=== PATIENT | male | born 1970 | race Caucasian/White ===

== ENCOUNTER → 2017-06-22 | Outpatient (CLI) | payer OTHER ==
[2017-06-22 17:11] LABS: Blood Urea Nitrogen 16 mg/dL (9-20)
--- NOTE | 2017-06-23 09:39 | CT ---
EXAMINATION TYPE: CT angio neck DATE OF EXAM: 06/22/2017 HISTORY: Visual disturbance and memory loss. COMPARISON: NONE CT DLP: 473.8 mGycm. Automated Exposure Control for Dose Reduction was Utilized. TECHNIQUE: CTA scan of the neck is performed with IV Contrast, patient injected with 65 mL of Isovue 370, axial images are obtained, coronal and sagittal reformatted images are reviewed. Three-D recons tructed images are created on an independent workstation and reviewed. FINDINGS: Carotid/Vascular Structures: There is a two-vessel arch. Thoracic aorta, innominate, left and right c ommon carotid, left and right subclavian arteries are patent. Left and right vertebral arteries are p atent and codominant. Internal and external carotid arteries are patent and show no significant steno sis. There is no evident dissection or aneurysm present. Other: Skull base is normal. Lung apices are unremarkable. Bones show no significant abnormality. IMPRESSION: No significant abnormality is seen.
== END ==
LOC: RADCTMAIN 16:26
PROVIDERS: ATTEND Psychiatry & Neurology Neurology
DX: R41.0 Disorientation, unspecified (principal)
CPT/HCPCS: 82565; 84520; 70498; 36415; Q9967

== ENCOUNTER → 2019-10-31 | Outpatient (CLI) | payer OTHER ==
--- NOTE | 2019-10-31 15:58 | US ---
EXAMINATION TYPE: US abdomen limited DATE OF EXAM: 10/31/2019 COMPARISON: NONE CLINICAL HISTORY: R74.8 ABN LEVELS OF OTHER SERUM ENZYMES. RUQ pain EXAM MEASUREMENTS: Liver Length: 18.4 cm Gallbladder Wall: 0.3 cm CBD: 0.5 cm Right Kidney: 13.1 x 5.4 x 6.1 cm Technical limitations due to patient's body habitus and large amount of overlying bowel content Pancreas: Obscured by bowel gas Liver: attenuating Gallbladder: no evidence of stones Evidence for sonographic Tay's sign: no CBD: limited evaluation Right Kidney: no evidence of hydronephrosis IMPRESSION: 1. Mild fatty infiltration liver.
--- NOTE | 2019-10-31 15:59 | US ---
EXAMINATION TYPE: US scrotum with doppler. Grayscale and color Doppler Duplex imaging performed of t gibran scrotum. 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 Patient states pea size lump in between sanjana ticles EXAM MEASUREMENTS: TESTICLES: Right Testicle: 4.2 x 2.0 x 3.3 cm Left Testicle: 4.5 x 2.1 x 3.5 cm EPIDIDYMIS HEAD: Right Epididymis: 1.4 cm Left Epididymis: 0.9 cm Doppler performed to assess for testicular vascularity; good bilateral color flow and waveforms are s een. There is no evidence of testicular torsion. Presence of varicoceles: yes, lateral to bilateral testicles Heterogeneous testes bilaterally . IMPRESSION: 1. No suspicious masses identified.
== END | disposition home or self-care (01) ==
LOC: RADUSWWP 07:35
PROVIDERS: ATTEND Family Medicine
DX: K76.0 Fatty (change of) liver, not elsewhere classified (principal); N50.89 Other specified disorders of the male genital organs; R74.8 Abnormal levels of other serum enzymes
CPT/HCPCS: 76705; 76870; 93975

== ENCOUNTER → 2019-11-04 | Outpatient (CLI) | payer OTHER | END | disposition home or self-care (01) | LOC: LABWHC1 10:46 | PROVIDERS: ATTEND Surgery Plastic and Reconstructive Surgery | DX: Z01.818 Encounter for other preprocedural examination (principal) | CPT/HCPCS: 36415; 93005 ==

== ENCOUNTER 2020-08-25 14:30 | Observation (INO) | payer OTHER ==
[2020-08-25] MEDS ORDERED: SODIUM CHLORIDE 0.9% 1,000 ML IV STA (14:59)
--- NOTE | 2020-08-25 15:03 | ED ---
General Adult HPI - General Chief complaint: Fever Stated complaint: fever,body aches Time Seen by Provider: 08/25/20 14:50 Source: patient, family, RN notes reviewed Mode of arrival: ambulatory Limitations: no limitations - History of Present Illness Initial comments: Patient is a pleasant 49-year-old male presenting to the emergency Department with complaints of abdominal discomfort and fever. Onset of symptoms was a past couple of days. Patient did have temperature of 102.0 this morning and did take Motrin. Abdominal discomfort has been mostly upper abdomen. Patient was seen at a different facility and had CT scans done just a couple days ago. Patient does have known gallbladder disease and previously was playing and having it removed with Dr. Oliver. Patient did have recent antibiotics for cellulitis of his left arm that is near resolved. Patient has had some chronic diarrhea/loose stools for months that is minimally improved. - Related Data Home Medications Medication Instructions Recorded Confirmed ALPRAZolam [Xanax] 0.25 mg PO BID PRN 08/25/20 08/25/20 Albuterol Inhaler [Ventolin Hfa 2 puff INHALATION QID PRN 08/25/20 08/25/20 Inhaler] Cyclobenzaprine [Flexeril] 5 mg PO TID PRN 08/25/20 08/25/20 Dicyclomine [Bentyl] 20 mg PO AC-BID 08/25/20 08/25/20 Fexofenadine HCl [Sol Allergy] 180 mg PO HS 08/25/20 08/25/20 Fluticasone Nasal [place] [Flonase 2 spr EA NOSTRIL DAILY PRN 08/25/20 08/25/20 Nasal [place]] Liraglutide [Victoza 3-Armond] 1.2 mg SQ DAILY 08/25/20 08/25/20 Lisinopril [Prinivil] 10 mg PO DAILY 08/25/20 08/25/20 Montelukast Sodium [Singulair] 10 mg PO DAILY 08/25/20 08/25/20 Omeprazole 40 mg PO DAILY 08/25/20 08/25/20 Sulfamethox-Tmp 800-160Mg [Bactrim 1 tab PO Q12H 08/25/20 08/25/20 DS 800-160 mg] metFORMIN HCL [Glucophage] 1,000 mg PO BID 08/25/20 08/25/20 Allergies Allergy/AdvReac Type Severity Reaction Status Date / Time codeine Allergy Rash/Hives Verified 08/25/20 17:01 diclofenac [From Cataflam] Allergy Unknown Verified 08/25/20 17:01 gemfibrozil [From Lopid] Allergy Rash/Hives Verified 08/25/20 17:01 metaxalone [From Skelaxin] Allergy Rash/Hives Verified 08/25/20 17:01 Review of Systems ROS Statement: Those systems with pertinent positive or pertinent negative responses have been documented in the HPI. ROS Other: All systems not noted in ROS Statement are negative. Constitutional: Reports: fever, chills Eyes: Denies: eye pain ENT: Denies: ear pain Respiratory: Denies: cough, dyspnea Cardiovascular: Denies: chest pain Endocrine: Denies: fatigue Gastrointestinal: Reports: as per HPI, abdominal pain Genitourinary: Denies: dysuria Musculoskeletal: Denies: back pain Skin: Denies: rash Neurological: Denies: weakness Past Medical History Past Medical History: Asthma, COPD, Diabetes Mellitus, GERD/Reflux, Hypertension Additional Past Medical History / Comment(s): cellulitis left elbow History of Any Multi-Drug Resistant Organisms: None Reported Past Surgical History: Orthopedic Surgery Past Psychological History: Anxiety Smoking Status: Former smoker Past Alcohol Use History: Occasional Past Drug Use History: None Reported General Exam Limitations: no limitations General appearance: alert, in no apparent distress Head exam: Present: normocephalic Eye exam: Present: normal appearance Neck exam: Present: normal inspection Respiratory exam: Present: normal lung sounds bilaterally Cardiovascular Exam: Present: regular rate, normal rhythm GI/Abdominal exam: Present: soft, tenderness (Mild to moderate tenderness right upper and lower quadrant), normal bowel sounds. Absent: distended, guarding, rebound, rigid, pulsatile mass Extremities exam: Present: normal inspection. Absent: pedal edema, calf tenderness Neurological exam: Present: alert Psychiatric exam: Present: normal affect, normal mood Skin exam: Present: normal color. Absent: erythema Course Vital Signs 08/25/20 14:32 Temperature 98.4 F Pulse Rate 86 Respiratory 18 Rate Blood Pressure 120/80 O2 Sat by Pulse 97 Oximetry Medical Decision Making - Medical Decision Making Patient reevaluated and still complain of discomfort. Patient and family updated on results and plan. Case was discussed with Dr. Oliver who is previous 16 this patient who will admit. Ultrasound be ordered. - Lab Data Result diagrams: 08/25/20 15:08 08/25/20 15:08 Lab Results 08/25/20 08/25/20 08/25/20 Range/Units 15:08 15:08 15:08 WBC 5.7 (3.8-10.6) k/uL RBC 4.37 (4.30-5.90) m/uL Hgb 14.6 (13.0-17.5) gm/dL Hct 41.1 (39.0-53.0) % MCV 94.0 (80.0-100.0) fL MCH 33.5 (25.0-35.0) pg MCHC 35.6 (31.0-37.0) g/dL RDW 13.0 (11.5-15.5) % Plt Count 204 (150-450) k/uL MPV 8.2 Neutrophils % 63 % Lymphocytes % 25 % Monocytes % 6 % Eosinophils % 1 % Basophils % 1 % Neutrophils # 3.6 (1.3-7.7) k/uL Lymphocytes # 1.4 (1.0-4.8) k/uL Monocytes # 0.4 (0-1.0) k/uL Eosinophils # 0.1 (0-0.7) k/uL Basophils # 0.0 (0-0.2) k/uL Hyperchromasia Slight PT 10.2 (9.0-12.0) sec INR 0.9 (<1.2) APTT 23.6 (22.0-30.0) sec Sodium (137-145) mmol/L Potassium (3.5-5.1) mmol/L Chloride (98-107) mmol/L Carbon Dioxide (22-30) mmol/L Anion Gap mmol/L BUN (9-20) mg/dL Creatinine (0.66-1.25) mg/dL Est GFR (CKD-EPI)AfAm (>60 ml/min/1.73 sqM) Est GFR (CKD-EPI)NonAf (>60 ml/min/1.73 sqM) Glucose (74-99) mg/dL Calcium (8.4-10.2) mg/dL Total Bilirubin (0.2-1.3) mg/dL AST (17-59) U/L ALT (4-49) U/L Alkaline Phosphatase (38-126) U/L Total Protein (6.3-8.2) g/dL Albumin (3.5-5.0) g/dL Amylase (30-110) U/L Lipase (23-300) U/L Urine Color Dark Yellow Urine Appearance Cloudy (Clear) Urine pH 5.5 (5.0-8.0) Ur Specific [place] 1.041 H (1.001-1.035) Urine Protein 2+ H (Negative) Urine Glucose (UA) Trace H (Negative) Urine Ketones Trace H (Negative) Urine Blood Negative (Negative) Urine Nitrite Negative (Negative) Urine Bilirubin Negative (Negative) Urine Urobilinogen <2.0 (<2.0) mg/dL Ur Leukocyte Esterase Negative (Negative) Urine RBC 4 (0-5) /hpf Urine WBC 3 (0-5) /hpf Urine Mucus Many H (None) /hpf 08/25/20 Range/Units 15:08 WBC (3.8-10.6) k/uL RBC (4.30-5.90) m/uL Hgb (13.0-17.5) gm/dL Hct (39.0-53.0) % MCV (80.0-100.0) fL MCH (25.0-35.0) pg MCHC (31.0-37.0) g/dL RDW (11.5-15.5) % Plt Count (150-450) k/uL MPV Neutrophils % % Lymphocytes % % Monocytes % % Eosinophils % % Basophils % % Neutrophils # (1.3-7.7) k/uL Lymphocytes # (1.0-4.8) k/uL Monocytes # (0-1.0) k/uL Eosinophils # (0-0.7) k/uL Basophils # (0-0.2) k/uL Hyperchromasia PT (9.0-12.0) sec INR (<1.2) APTT (22.0-30.0) sec Sodium 135 L (137-145) mmol/L Potassium 4.4 (3.5-5.1) mmol/L Chloride 102 (98-107) mmol/L Carbon Dioxide 20 L (22-30) mmol/L Anion Gap 13 mmol/L BUN 19 (9-20) mg/dL Creatinine 1.08 (0.66-1.25) mg/dL Est GFR (CKD-EPI)AfAm >90 (>60 ml/min/1.73 sqM) Est GFR (CKD-EPI)NonAf 80 (>60 ml/min/1.73 sqM) Glucose 164 H (74-99) mg/dL Calcium 9.5 (8.4-10.2) mg/dL Total Bilirubin 1.4 H (0.2-1.3) mg/dL AST 51 (17-59) U/L ALT 85 H (4-49) U/L Alkaline Phosphatase 68 (38-126) U/L Total Protein 7.5 (6.3-8.2) g/dL Albumin 4.7 (3.5-5.0) g/dL Amylase 83 (30-110) U/L Lipase 202 (23-300) U/L Urine Color Urine Appearance (Clear) Urine pH (5.0-8.0) Ur Specific [place] (1.001-1.035) Urine Protein (Negative) Urine Glucose (UA) (Negative) Urine Ketones (Negative) Urine Blood (Negative) Urine Nitrite (Negative) Urine Bilirubin (Negative) Urine Urobilinogen (<2.0) mg/dL Ur Leukocyte Esterase (Negative) Urine RBC (0-5) /hpf Urine WBC (0-5) /hpf Urine Mucus (None) /hpf - Radiology Data Radiology results: report reviewed (Abdominal CT does not reveal acute process, normal appendix. There are gallstones.) Disposition Clinical Impression: Abdominal pain Disposition: ADMITTED IP TO THIS HOSP Is patient prescribed a controlled substance at d/c from ED?: No Referrals: Seven Moon MD [Primary Care Provider] - 1-2 days Decision Time: 17:36
[2020-08-25 15:25] LABS: Basophils % (A) 1 %; Eosinophils # (A) 0.1 k/uL (0-0.7); Eosinophils % (A) 1 %; HCT 41.1 % (39.0-53.0); HGB 14.6 gm/dL (13.0-17.5); Hyperchromasia Slight; Lymphocytes # (A) 1.4 k/uL (1.0-4.8); Lymphocytes % (A) 25 %; MCH 33.5 pg (25.0-35.0); MCHC 35.6 g/dL (31.0-37.0); Mean Platelet Volume 8.2; Monocytes # (A) 0.4 k/uL (0-1.0); Monocytes % (A) 6 %; Neutrophils # (A) 3.6 k/uL (1.3-7.7); Neutrophils % (A) 63 %; Platelet Count 204 k/uL (150-450); RBC 4.37 m/uL (4.30-5.90); WBC 5.7 k/uL (3.8-10.6)
[2020-08-25 15:37] LABS: ALT 85 U/L (4-49); AST 51 U/L (17-59); African American GFR (CKD) >90 (>60 ml/min/1.73 sqM); Albumin 4.7 g/dL (3.5-5.0); Alkaline Phosphatase 68 U/L (38-126); Amylase 83 U/L (30-110); Anion Gap 13 mmol/L; Blood Urea Nitrogen 19 mg/dL (9-20); Calcium 9.5 mg/dL (8.4-10.2); Carbon Dioxide 20 mmol/L (22-30); Chloride 102 mmol/L (98-107); Glucose 164 mg/dL (74-99); INR 0.9 (<1.2); Lipase 202 U/L (23-300); Non-African American GFR(CKD) 80 (>60 ml/min/1.73 sqM); Partial Thromboplastin Time 23.6 sec (22.0-30.0); Potassium 4.4 mmol/L (3.5-5.1); Prothrombin Time 10.2 sec (9.0-12.0); Sodium 135 mmol/L (137-145); Total Bilirubin 1.4 mg/dL (0.2-1.3); Total Protein 7.5 g/dL (6.3-8.2)
[2020-08-25 15:59] LABS: Appearance,Urine Cloudy (Clear); Bilirubin,Urine Negative (Negative); Blood,Urine Negative (Negative); Color,Urine Dark Yellow; Glucose,Urine (UA) Trace (Negative); Ketones,Urine Trace (Negative); Leukocyte Esterase,Urine Negative (Negative); Mucus,Urine Many /hpf; Nitrite,Urine Negative (Negative); PH, Urine 5.5 (5.0-8.0); Protein,Urine 2+ (Negative); RBC,Urine 4 /hpf (0-5); Specific Gravity,Urine 1.041 (1.001-1.035); Urobilinogen,Urine <2.0 mg/dL (<2.0); WBC,Urine 3 /hpf (0-5)
--- NOTE | 2020-08-25 16:31 | CT ---
EXAMINATION TYPE: CT abdomen pelvis w con DATE OF EXAM: 08/25/2020 COMPARISON: None HISTORY: Right sided abdominal pain with fever CT DLP: 2184 mGycm CONTRAST: CT scan of the abdomen and pelvis is performed without Oral Contrast and with IV Contrast, patient in jected with 100 mL of Isovue 300. FINDINGS: LUNG BASES-: No visible nodule. No infiltrate. LIVER/GB: Small gallstones noted. Hepatic steatosis identified. No space occupying hepatic lesion. Biliary tree is of normal caliber. PANCREAS: No inflammation. No distinct mass. SPLEEN: Splenomegaly measuring 16.2 cm craniocaudal dimension. No lesion seen. ADRENALS: No nodule. No thickening. KIDNEYS/BLADDER: No hydronephrosis. No nephrolithiasis. No distinct renal mass. Urinary bladder g rossly unremarkable. BOWEL: Normal appendix. Normal bowel caliber. No inflammation. GENITAL ORGANS: No gross abnormality. LYMPH NODES: No greater than 1cm abdominal or pelvic lymph nodes are appreciated. AORTA: No significant abnormality. OSSEOUS STRUCTURES: No significant abnormality is seen. OTHER: No significant additional abnormality is seen. IMPRESSION: 1. Splenomegaly of uncertain etiology. 2. Fatty liver. 3. No inflammatory process or abscess seen.
[2020-08-25] MEDS ORDERED: NALOXONE 0.4 MG/ML 1 ML VIAL IV PRN (17:36)
[2020-08-25] MEDS ORDERED: HYDROmorphone 1 MG/ML 1 ML SYRINGE IVP PRN (17:36)
[2020-08-25] MEDS ORDERED: HYDROmorphone 0.5 MG/0.5 ML SYRINGE IVP PRN (17:36)
[2020-08-25] MEDS: SODIUM CHLORIDE 0.9% 1,000 ML IV SCH (18:11)
[2020-08-25] MEDS: AMPICILLIN-SULBACTAM 1.5 GM in SODIUM CHLORIDE 0.9% 50 ML IVPB SCH ×2 (18:22→23:35)
[2020-08-25] MEDS ORDERED: FLUTICASONE 50MCG/SPRAY NASAL 16GM EA NOSTRIL PRN (19:32)
[2020-08-25] MEDS ORDERED: ALBUTEROL NEBULIZED 2.5 MG/3 ML INHALATION PRN (19:32)
[2020-08-25] MEDS ORDERED: SODIUM CHLORIDE 0.9% 1,000 ML IV ONE (19:36)
[2020-08-25] MEDS: lisinopriL 10 MG TAB PO SCH (19:50)
[2020-08-25] MEDS: MONTELUKAST 10 MG TAB PO SCH (19:50)
[2020-08-25] MEDS: metFORMIN 500 MG TAB PO SCH (19:52)
[2020-08-25] MEDS: LORATADINE 10 MG TAB PO SCH (19:52)
--- NOTE | 2020-08-25 20:17 | US ---
EXAMINATION TYPE: US gallbladder DATE OF EXAM: 08/25/2020 COMPARISON: CT, US CLINICAL HISTORY: ruq pain. RUQ pain. Hx gallstones, fatty liver. EXAM MEASUREMENTS: Liver Length: 20.0 cm Gallbladder Wall: 0.31 cm CBD: Not seen with certainty, measured at 0.55 cm Right Kidney: 13.1 x 6.7 x 6.7 cm Limited due to large patient body habitus and overlying bowel gas. Pancreas: Obscured by overlying bowel gas. Liver: Appears enlarged. Increased echogenicity and attenuation. Gallbladder: Limited. Possible internal echoes. Wall measures upper limits of normal. Evidence for sonographic Tay's sign: No CBD: Not seen with certainty, measured at 0.55 cm. Right Kidney: Appears enlarged. Hyperechoic focus seen: 0.5 x 0.5 x 0.4 cm. IMPRESSION: Gallbladder not optimally seen. No definite gallstones. No dilated ducts. No evidence of a discrete l iver mass. There is fatty infiltration of the liver. Exam limited by patient's size.
[2020-08-25] MEDS: CYCLOBENZAPRINE 5 MG TAB PO PRN (23:43)
[2020-08-26] MEDS: INSULIN ASPART (NovoLOG) 100 UNIT/ML VIAL SQ SCH ×4 (03:12→18:02)
[2020-08-26] MEDS: AMPICILLIN-SULBACTAM 1.5 GM in SODIUM CHLORIDE 0.9% 50 ML IVPB SCH ×4 (05:22→23:02)
[2020-08-26] MEDS: SODIUM CHLORIDE 0.9% 1,000 ML IV SCH ×3 (05:23→16:57)
[2020-08-26 06:25] LABS: ALT 77 U/L (4-49); AST 42 U/L (17-59); African American GFR (CKD) >90 (>60 ml/min/1.73 sqM); Albumin/Globulin Ratio 1.6; Alkaline Phosphatase 58 U/L (38-126); Anion Gap 9 mmol/L; Blood Urea Nitrogen 16 mg/dL (9-20); Calcium 8.7 mg/dL (8.4-10.2); Carbon Dioxide 23 mmol/L (22-30); Chloride 103 mmol/L (98-107); Globulin 2.5 g/dL; Glucose 116 mg/dL (74-99); Non-African American GFR(CKD) 89 (>60 ml/min/1.73 sqM); Potassium 4.2 mmol/L (3.5-5.1); Sodium 135 mmol/L (137-145); Total Bilirubin 1.1 mg/dL (0.2-1.3); Total Protein 6.5 g/dL (6.3-8.2)
[2020-08-26 08:02] LABS: Glucose,Whole Blood 138 mg/dL (75-99)
[2020-08-26] MEDS: PANTOPRAZOLE 40 MG/10 ML VIAL IV SCH (08:13)
[2020-08-26] MEDS: ALPRAZolam 0.25 MG TAB PO PRN (08:13)
[2020-08-26] MEDS: ACETAMINOPHEN TAB 325 MG TAB PO PRN ×2 (08:13→23:01)
[2020-08-26] MEDS: metFORMIN 500 MG TAB PO SCH (08:13)
[2020-08-26] MEDS: MONTELUKAST 10 MG TAB PO SCH (08:13)
[2020-08-26] MEDS: lisinopriL 10 MG TAB PO SCH (08:14)
[2020-08-26] MEDS: DICYCLOMINE 20 MG TAB PO SCH ×2 (08:14→18:02)
[2020-08-26] MEDS: NON FORMULARY DRUG (Liraglutide [Victoza 3-Pak] 0.6 MG/0.1 ML Pen.Injctr) SQ SCH (08:21)
[2020-08-26 09:25] LABS: Basophils # (A) 0.03 X 10*3/uL (0.00-0.10); Basophils % (A) 0.6 %; Eosinophils # (A) 0.05 X 10*3/uL (0.04-0.35); Eosinophils % (A) 1.1 %; HGB 12.7 g/dL (13.0-17.0); Lymphocytes # (A) 1.82 X 10*3/uL (0.90-5.00); Lymphocytes % (A) 39.2 %; MCH 32.5 pg (27.0-32.0); MCHC 33.4 g/dL (32.0-37.0); MCV 97.2 fL (80.0-97.0); Mean Platelet Volume 10.8 fL (9.5-12.2); Monocytes # (A) 0.48 X 10*3/uL (0.20-1.00); Monocytes % (A) 10.3 %; Neutrophils # (A) 2.23 X 10*3/uL (1.80-7.70); Neutrophils % (A) 48.2 %; Platelet Count 195 X 10*3/uL (140-440); RBC 3.91 X 10*6/uL (4.40-5.60); RDW 13.2 % (11.5-14.5); WBC 4.64 X 10*3/uL (4.50-10.00)
[2020-08-26] MEDS ORDERED: ONDANSETRON 4 MG/2 ML VIAL IVP PRN (11:02)
--- NOTE | 2020-08-26 11:04 | P.GSHP ---
<Jena Oates - Last Filed: 08/26/20 13:45> History of Present Illness H&P Date: 08/26/20 CHIEF COMPLAINT: Abdominal pain HISTORY OF PRESENT ILLNESS: This is a 49-year-old male with a known history of gallbladder disease, COPD, diabetes and hypertension. He had previously been on antibiotics for left elbow cellulitis that has healed. He presents to the emergency room with complaints of abdominal pain and fever. Patient reports that he is having abdominal pain off and on for a while. He is also been dealing with diarrhea since . He had coded during time. And since then has been having about 3 loose stools daily. He reports that the stools are sometimes foamy and he initially started out black. He occasionally has some blood but felt that it was related to his hemorrhoids. He has not had any bright red blood for about 2 months. Patient became concerned because he was having fevers at home as high as 102 over the last couple a days and that is what brought him into the emergency room. He has diffuse pain but mostly his pain is across the upper abdomen. Patient reports that he was about a year ago was supposed to have his gallbladder removed by Dr. Ramos but due to Covid he never did have the surgery done. Patient denies any nausea or vomiting. He has had EGD and colonoscopy about 3 years ago and reports that those were normal. He had computed tomography scan abdomen and pelvis with IV contrast showing splenomegaly of uncertain etiology. Fatty liver. No inflammatory process or abscess seen. Abdominal ultrasound shows gallbladder not optimally seen. No definite gallstones. No dilated ducts. No evidence of discrete liver mass. There is fatty infiltration of the liver. Exam limited by patient's size. Patient does admit to having nausea. He denies any vomiting. He reports that his symptoms have improved after taking until which he started about 5 days ago and was prescribed by his PCP. PAST MEDICAL HISTORY: See list. PAST SURGICAL HISTORY: See list. MEDICATIONS: See list. ALLERGIES: See list. SOCIAL HISTORY: No illicit drug use. REVIEW OF SYSTEMS: CONSTITUTIONAL: Denies fever or chills. HEENT: Denies blurred vision, vision changes, or eye pain. Denies hemoptysis ENDOCRINE: Denies heat or cold intolerance. CARDIOVASCULAR: Denies chest pain or pressure. RESPIRATORY: No shortness of breath. GASTROINTESTINAL: Please refer to HPI NEURO: Denies history of seizures. PSYCH: No depression or suicidal ideation HEMATOLOGIC: Denies bleeding disorders. LYMPHATIC: The patient denies any lumps and bumps around the neck. GENITOURINARY: Denies any blood in urine or increased urinary frequency. MUSCULOSKELETAL: Denies myalgias. Denies joint swelling. Denies decreased range of motion beyond patients baseline. SKIN: Denies pruitis. Denies rash. PHYSICAL EXAM: VITAL SIGNS: Reviewed GENERAL: Well-developed in no acute distress. HEENT: No sclera icterus. Extraocular movements grossly intact. Moist buccal mucosa. Head is atraumatic, normocephalic. Hears conversational speech. No nasal drainage. NECK: Supple without lymphadenopathy. CHEST: Non-labored respirations and equal bilateral excursions. CARDIOVASCULAR: Palpable 2+ radial pulses. ABDOMEN: Soft. Nondistended. Diffuse tenderness. With more tenderness noted on the right side of the abdomen and across the upper abdomen MUSCULOSKELETAL: No clubbing or cyanosis. NEUROLOGIC: No focal or lateralizing signs. Cranial nerves II through XII grossly intact. PSYCH: Appropriate affect. Alert and oriented to person, place and time. SKIN: Well perfused. Good skin turgor. LABORATORY DATA: WBC is 4.64 hemoglobin 12.7 platelets 195 INR 0.9 sodium 135 potassium 4.2 creatinine 0.99 glucose 138 Total bilirubin 1.4 down to 1.1 AST 42 ALT 85 down to 77 and alk phos 58 lipase 202 Urinalysis negative for infection IMAGING: CAT scan and ultrasound as stated above ASSESSMENT: 1. Right-sided upper abdominal pain with nausea, fever and diarrhea 2. Right lower quadrant abdominal pain. CT scan reevaluated by Dr. Ramos with evidence of a large fat-containing right inguinal hernia. Appendix unremarkable. 2. History of gallbladder disease 3. History of recent antibiotic use for left elbow cellulitis 4. History of COPD 5. History of diabetes 6. History of hypertension PLAN: -Patient scheduled for robotic cholecystectomy tomorrow, 08/27/[address] Ramos -Continue IV antibiotics -Agree with checking stool for C. diff -Continue IV fluids -Consult medicine service for medical management -Cardiology consulted for cardiac risk assessment -Patient started on low-fat diet -Nothing by mouth after midnight Physician Customs Investigator note has been reviewed by physician. Signing provider agrees with the documented findings, assessment, and plan of care. Past Medical History Past Medical History: Asthma, COPD, Diabetes Mellitus, GERD/Reflux, Hypertension, Sleep Apnea/CPAP/BIPAP Additional Past Medical History / Comment(s): cellulitis left elbow History of Any Multi-Drug Resistant Organisms: None Reported Past Surgical History: Orthopedic Surgery Past Psychological History: Anxiety Smoking Status: Former smoker Past Alcohol Use History: Occasional Past Drug Use History: None Reported Medications and Allergies Home Medications Medication Instructions Recorded Confirmed Type RX: ALPRAZolam [Xanax] 0.25 mg PO BID PRN 08/25/20 08/25/20 History RX: Albuterol Inhaler [Ventolin 2 puff INHALATION QID PRN 08/25/20 08/25/20 History Hfa Inhaler] RX: Cyclobenzaprine [Flexeril] 5 mg PO TID PRN 08/25/20 08/25/20 History RX: Fexofenadine HCl [Sol 180 mg PO HS 08/25/20 08/25/20 History Allergy] RX: Fluticasone Nasal [place] 2 spr EA NOSTRIL DAILY PRN 08/25/20 08/25/20 History [Flonase Nasal [place]] RX: Liraglutide [Victoza 3-Armond] 1.2 mg SQ DAILY 08/25/20 08/25/20 History RX: Lisinopril [Prinivil] 10 mg PO DAILY 08/25/20 08/25/20 History RX: Montelukast Sodium [Singulair] 10 mg PO DAILY 08/25/20 08/25/20 History RX: Omeprazole 40 mg PO DAILY 08/25/20 08/25/20 History RX: Sulfamethox-Tmp 800-160Mg 1 tab PO Q12H 08/25/20 08/25/20 History [Bactrim DS 800-160 mg] RX: metFORMIN HCL [Glucophage] 1,000 mg PO BID 08/25/20 08/25/20 History Acetaminophen Tab [Tylenol Tab] 1,000 mg PO Q6HR PRN #30 tablet 08/27/20 Rx RX: Ibuprofen [Motrin] 600 mg PO Q8HR PRN #30 tab 08/27/20 Rx RX: Simethicone [Gas-X] 125 mg PO AC-TID PRN #20 capsule 08/27/20 Rx Allergies Allergy/AdvReac Type Severity Reaction Status Date / Time codeine Allergy Rash/Hives Verified 08/25/20 17:01 diclofenac [From Cataflam] Allergy Unknown Verified 08/25/20 17:01 gemfibrozil [From Lopid] Allergy Rash/Hives Verified 08/25/20 17:01 metaxalone [From Skelaxin] Allergy Rash/Hives Verified 08/25/20 17:01 Surgical - Exam Vital Signs Temp Pulse Resp BP Pulse Ox 98.4 F 86 18 120/80 97 08/25/20 14:32 08/25/20 14:32 08/25/20 14:32 08/25/20 14:32 08/25/20 14:32 Results - Labs 08/26/20 05:26 08/26/20 05:26 Abnormal Lab Results - Last 24 Hours (Table) 08/25/20 08/25/20 08/26/20 Range/Units 15:08 15:08 05:26 RBC 3.91 L (4.40-5.60) X 10*6/uL Hgb 12.7 L (13.0-17.0) g/dL Hct 38.0 L (39.6-50.0) % MCV 97.2 H (80.0-97.0) fL MCH 32.5 H (27.0-32.0) pg Sodium 135 L (137-145) mmol/L Carbon Dioxide 20 L (22-30) mmol/L Glucose 164 H (74-99) mg/dL POC Glucose (mg/dL) (75-99) mg/dL Total Bilirubin 1.4 H (0.2-1.3) mg/dL ALT 85 H (4-49) U/L Ur Specific [place] 1.041 H (1.001-1.035) Urine Protein 2+ H (Negative) Urine Glucose (UA) Trace H (Negative) Urine Ketones Trace H (Negative) Urine Mucus Many H (None) /hpf 08/26/20 08/26/20 Range/Units 05:26 07:59 RBC (4.40-5.60) X 10*6/uL Hgb (13.0-17.0) g/dL Hct (39.6-50.0) % MCV (80.0-97.0) fL MCH (27.0-32.0) pg Sodium 135 L (137-145) mmol/L Carbon Dioxide (22-30) mmol/L Glucose 116 H (74-99) mg/dL POC Glucose (mg/dL) 138 H (75-99) mg/dL Total Bilirubin (0.2-1.3) mg/dL ALT 77 H (4-49) U/L Ur Specific [place] (1.001-1.035) Urine Protein (Negative) Urine Glucose (UA) (Negative) Urine Ketones (Negative) Urine Mucus (None) /hpf Diabetes panel 08/25/20 08/26/20 Range/Units 15:08 05:26 Sodium 135 L 135 L (137-145) mmol/L Potassium 4.4 4.2 (3.5-5.1) mmol/L Chloride 102 103 (98-107) mmol/L Carbon Dioxide 20 L 23 (22-30) mmol/L BUN 19 16 (9-20) mg/dL Creatinine 1.08 0.99 (0.66-1.25) mg/dL Glucose 164 H 116 H (74-99) mg/dL Calcium 9.5 8.7 (8.4-10.2) mg/dL AST 51 42 (17-59) U/L ALT 85 H 77 H (4-49) U/L Alkaline Phosphatase 68 58 (38-126) U/L Total Protein 7.5 6.5 (6.3-8.2) g/dL Albumin 4.7 4.0 (3.5-5.0) g/dL Calcium panel 08/25/20 08/26/20 Range/Units 15:08 05:26 Calcium 9.5 8.7 (8.4-10.2) mg/dL Albumin 4.7 4.0 (3.5-5.0) g/dL Pituitary panel 08/25/20 08/26/20 Range/Units 15:08 05:26 Sodium 135 L 135 L (137-145) mmol/L Potassium 4.4 4.2 (3.5-5.1) mmol/L Chloride 102 103 (98-107) mmol/L Carbon Dioxide 20 L 23 (22-30) mmol/L BUN 19 16 (9-20) mg/dL Creatinine 1.08 0.99 (0.66-1.25) mg/dL Glucose 164 H 116 H (74-99) mg/dL Calcium 9.5 8.7 (8.4-10.2) mg/dL Adrenal panel 08/25/20 08/26/20 Range/Units 15:08 05:26 Sodium 135 L 135 L (137-145) mmol/L Potassium 4.4 4.2 (3.5-5.1) mmol/L Chloride 102 103 (98-107) mmol/L Carbon Dioxide 20 L 23 (22-30) mmol/L BUN 19 16 (9-20) mg/dL Creatinine 1.08 0.99 (0.66-1.25) mg/dL Glucose 164 H 116 H (74-99) mg/dL Calcium 9.5 8.7 (8.4-10.2) mg/dL Total Bilirubin 1.4 H 1.1 (0.2-1.3) mg/dL AST 51 42 (17-59) U/L ALT 85 H 77 H (4-49) U/L Alkaline Phosphatase 68 58 (38-126) U/L Total Protein 7.5 6.5 (6.3-8.2) g/dL Albumin 4.7 4.0 (3.5-5.0) g/dL <Stephanie Ramos - Last Filed: 08/27/20 19:12> History of Present Illness Patient seen and evaluated. Patient reports pre-existing hypertensive heart disease. Cardiology risk assessment recommended including with echocardiogram ordered. Patient also complains of epigastric and right lower quadrant abdominal pain. Additional diagnostic studies to be reviewed. Otherwise, we'll proceed with cholecystectomy pending cardiac risk assessment, and reevaluation of studies. Surgical - Exam Vital Signs Temp Pulse Resp BP Pulse Ox 98.4 F 86 18 120/80 97 08/25/20 14:32 08/25/20 14:32 08/25/20 14:32 08/25/20 14:32 08/25/20 14:32 Results - Labs 08/26/20 05:26 08/27/20 06:20 Abnormal Lab Results - Last 24 Hours (Table) 08/26/20 08/26/20 08/26/20 Range/Units 05:26 05:26 20:46 Chloride (98-107) mmol/L Glucose (74-99) mg/dL POC Glucose (mg/dL) 163 H (75-99) mg/dL Iron 40 L (65-175) ug/dL % Saturation 14.65 L (15.00-50.00) Ferritin 846.6 H (22.0-322.0) ng/mL ALT (4-49) U/L Total Protein (6.3-8.2) g/dL 08/27/20 08/27/20 08/27/20 Range/Units 06:20 07:29 11:15 Chloride 108 H (98-107) mmol/L Glucose 133 H (74-99) mg/dL POC Glucose (mg/dL) 139 H 134 H (75-99) mg/dL Iron (65-175) ug/dL % Saturation (15.00-50.00) Ferritin (22.0-322.0) ng/mL ALT 75 H (4-49) U/L Total Protein 6.1 L (6.3-8.2) g/dL 08/27/20 Range/Units 16:02 Chloride (98-107) mmol/L Glucose (74-99) mg/dL POC Glucose (mg/dL) 110 H (75-99) mg/dL Iron (65-175) ug/dL % Saturation (15.00-50.00) Ferritin (22.0-322.0) ng/mL ALT (4-49) U/L Total Protein (6.3-8.2) g/dL Microbiology - Last 24 Hours (Table) 08/26/20 05:26 Blood Culture - Preliminary Blood No Growth after 24 hours Diabetes panel 08/27/20 Range/Units 06:20 Sodium 141 (137-145) mmol/L Potassium 4.5 (3.5-5.1) mmol/L Chloride 108 H (98-107) mmol/L Carbon Dioxide 28 (22-30) mmol/L BUN 15 (9-20) mg/dL Creatinine 0.97 (0.66-1.25) mg/dL Glucose 133 H (74-99) mg/dL Calcium 8.9 (8.4-10.2) mg/dL AST 39 (17-59) U/L ALT 75 H (4-49) U/L Alkaline Phosphatase 53 (38-126) U/L Total Protein 6.1 L (6.3-8.2) g/dL Albumin 3.7 (3.5-5.0) g/dL Calcium panel 08/27/20 Range/Units 06:20 Calcium 8.9 (8.4-10.2) mg/dL Albumin 3.7 (3.5-5.0) g/dL Pituitary panel 08/27/20 Range/Units 06:20 Sodium 141 (137-145) mmol/L Potassium 4.5 (3.5-5.1) mmol/L Chloride 108 H (98-107) mmol/L Carbon Dioxide 28 (22-30) mmol/L BUN 15 (9-20) mg/dL Creatinine 0.97 (0.66-1.25) mg/dL Glucose 133 H (74-99) mg/dL Calcium 8.9 (8.4-10.2) mg/dL Adrenal panel 08/27/20 Range/Units 06:20 Sodium 141 (137-145) mmol/L Potassium 4.5 (3.5-5.1) mmol/L Chloride 108 H (98-107) mmol/L Carbon Dioxide 28 (22-30) mmol/L BUN 15 (9-20) mg/dL Creatinine 0.97 (0.66-1.25) mg/dL Glucose 133 H (74-99) mg/dL Calcium 8.9 (8.4-10.2) mg/dL Total Bilirubin 0.7 (0.2-1.3) mg/dL AST 39 (17-59) U/L ALT 75 H (4-49) U/L Alkaline Phosphatase 53 (38-126) U/L Total Protein 6.1 L (6.3-8.2) g/dL Albumin 3.7 (3.5-5.0) g/dL
--- NOTE | 2020-08-26 11:26 | P.PN ---
Progress Note - Text Progress Note Date: 08/26/20 Patient seen and evaluated. He is also complaining of right lower quadrant abdominal pain. Patient has pre-existing history of multiple hernias including inguinal hernia and umbilical hernia. Patient reports abdominal pain after eating at outside restaurant. Computed tomography scan reevaluated. Appendix unremarkable. Large fat-containing right inguinal hernia found. We'll proceed with robotic cholecystectomy. Low-fat diet at this time. Immediate echo for cardiac risk assessment advised.
[2020-08-26 12:18] LABS: Glucose,Whole Blood 111 mg/dL (75-99)
--- NOTE | 2020-08-26 13:26 | P.CONS ---
History of Present Illness - Reason for Consult Consult date: 08/26/20 - Chief Complaint Abdominal pain and fever - History of Present Illness History of Presenting Illness: Patient is a 49-year-old male with a past medical history of gallbladder disease, hypertension, type II [id number] diabetes mellitus, and [place]. He presented to the emergency department with a chief complaint of abdominal pain and fever. He reports that he has been under treatment of Dr. Barkley outpatient for treatment of his gallbladder disease and they were planning to do a cholecystectomy when he had his hernia repair. Patient reports over the past couple days he's had an increase in his abdominal pain and has been running a fever as high as 102F. Patient reports in addition to this has had a couple episodes of nausea but denies having any episodes of vomiting. He recently underwent treatment with antibiotics for cellulitis of his left elbow in which he reports resolution of cellulitis and completion of entire course of antibiotics.. Lastly, he reports having had chronic loose stool since 1966 in which he reports turned to diarrhea around after having Covid 19 virus infection. Patient is admitted under Gen. surgery team and we have been consulted for continued medical management. Patient denies having any headache, lightheadedness, dizziness, chest pain, palpitations, shortness of breath, dysp marlena with exertion, or experiencing any noted blood in stool or dark-colored stools. Review of systems: Pertinent positives and negatives as discussed in HPI, a complete review of systems was performed and all other systems are negative. Physical exam: Vital signs reviewed and stable. General: Nontoxic, no distress and appears stated age. Derm: Skin warm and dry, normal coloration for ethnicity. Head: Atraumatic, normocephalic and symmetric. Eyes: EOMs intact, no lid lag, and anicteric sclera Mouth: no lip lesions, mucus membranes moist Cardiovascular: regular rate and rhythm with normal S1S2, no murmur, positive posterior tibial pulses bilaterally, and cap refill < 2 seconds. Lungs: Respirations even, regular, and unlabored on room air. Lungs CTA bilaterally, no rhonchi, no rales, no wheezing, and no accessory muscle usage. Abdominal: soft, tenderness to palpation in right upper quadrant, epigastric region, and right lower quadrant. No guarding, no appreciable organomegaly Ext: ROM intact. No gross muscle atrophy, no edema, no contractures Neuro: Speech clear, face symmetrical and CN II-XII grossly intact with no noted focal neuro deficits Psych: Alert and oriented to person, place, time, and situation. Appropriate and pleasant affect. Assessment and Plan of Care: Abdominal pain with history of gallbladder disease along with abdominal hernias -Gallbladder ultrasound reportedly stating gallbladder not optimally seen with no definite gallstones or dilated ducts and no evidence of discrete liver mass. Showing only fatty infiltration of the liver. -CT abdomen and pelvis showing splenomegaly and fatty liver -Patient admitted under Gen. surgery team with plans for robotic cholecystectomy. -Morning labs: CMP and CBC to be monitored -Symptomatic care and pain management -Protonix 40 mg IVP daily -IV antibiotics Unasyn Hypertension -Monitor vital signs and continue daily medication regimen with lisinopril. Type II [id number] diabetes mellitus -Hold metformin in place patient on glycemic protocol with NovoLog sliding scale. COPD -Encourage use of incentive spirometry 10-15 times hourly while awake -Provide oxygen supplementation as needed to maintain SpO2 equal to or greater than 90%. -When necessary Ventolin treatments as needed for shortness of breath. -Singulair 10 mg daily. Thank you for allowing us to participate in the care of this pleasant patient. Do not hesitate to contact us with questions. Someone can be reached from the [facility] hospitalist group all hours of the day at [phone] or via [employer]. Past Medical History Past Medical History: Asthma, COPD, Diabetes Mellitus, GERD/Reflux, Hypertension, Sleep Apnea/CPAP/BIPAP Additional Past Medical History / Comment(s): cellulitis left elbow History of Any Multi-Drug Resistant Organisms: None Reported Past Surgical History: Orthopedic Surgery Past Psychological History: Anxiety Smoking Status: Former smoker Past Alcohol Use History: Occasional Past Drug Use History: None Reported Medications and Allergies Home Medications Medication Instructions Recorded Confirmed Type ALPRAZolam [Xanax] 0.25 mg PO BID PRN 08/25/20 08/25/20 History Albuterol Inhaler [Ventolin Hfa 2 puff INHALATION QID PRN 08/25/20 08/25/20 History Inhaler] Cyclobenzaprine [Flexeril] 5 mg PO TID PRN 08/25/20 08/25/20 History Dicyclomine [Bentyl] 20 mg PO AC-BID 08/25/20 08/25/20 History Fexofenadine HCl [Sol Allergy] 180 mg PO HS 08/25/20 08/25/20 History Fluticasone Nasal [place] [Flonase 2 spr EA NOSTRIL DAILY PRN 08/25/20 08/25/20 History Nasal [place]] Liraglutide [Victoza 3-Armond] 1.2 mg SQ DAILY 08/25/20 08/25/20 History Lisinopril [Prinivil] 10 mg PO DAILY 08/25/20 08/25/20 History Montelukast Sodium [Singulair] 10 mg PO DAILY 08/25/20 08/25/20 History Omeprazole 40 mg PO DAILY 08/25/20 08/25/20 History Sulfamethox-Tmp 800-160Mg [Bactrim 1 tab PO Q12H 08/25/20 08/25/20 History DS 800-160 mg] metFORMIN HCL [Glucophage] 1,000 mg PO BID 08/25/20 08/25/20 History Allergies Allergy/AdvReac Type Severity Reaction Status Date / Time codeine Allergy Rash/Hives Verified 08/25/20 17:01 diclofenac [From Cataflam] Allergy Unknown Verified 08/25/20 17:01 gemfibrozil [From Lopid] Allergy Rash/Hives Verified 08/25/20 17:01 metaxalone [From Skelaxin] Allergy Rash/Hives Verified 08/25/20 17:01 Physical Exam Vitals: Vital Signs Temp Pulse Pulse Resp BP BP Pulse Ox 08/26/20 08:45 67 08/26/20 08:33 68 08/26/20 07:00 99.8 F H 73 18 126/78 96 08/26/20 01:25 99.2 F 83 20 121/73 96 08/25/20 19:37 98.8 F 80 18 151/85 100 08/25/20 18:14 74 20 121/84 99 08/25/20 14:32 98.4 F 86 18 120/80 97 Intake and Output 08/25/20 08/26/20 08/26/20 22:59 06:59 14:59 Intake Total 2300 1100 Output Total 1 Balance 2299 1100 Intake: Intake, IV Titration 2300 1100 Amount Ampicillin-Sulbactam 1.5 100 100 gm In Sodium Chloride 0.9 % 50 ml @ 100 mls/hr IVPB Q6HR P[facility]RO Rx#:[id number] Sodium Chloride 0.9% 1, 200 1000 000 ml @ 130 mls/hr IV . Q7H42M PEDRO Rx#:[id number] Sodium Chloride 0.9% 1, 1000 000 ml @ 999 mls/hr IV . Q1H1M ONE Rx#:[id number] Sodium Chloride 0.9% 1, 1000 000 ml @ 999 mls/hr IV . Q1H1M STA Rx#:[id number] Output: Urine 1 Other: Weight 129.274 kg Results CBC & Chem 7: 08/26/20 05:26 08/26/20 05:26 Labs: Abnormal Lab Results - Last 24 Hours (Table) 08/25/20 08/25/20 08/26/20 Range/Units 15:08 15:08 05:26 Sodium 135 L 135 L (137-145) mmol/L Carbon Dioxide 20 L (22-30) mmol/L Glucose 164 H 116 H (74-99) mg/dL POC Glucose (mg/dL) (75-99) mg/dL Total Bilirubin 1.4 H (0.2-1.3) mg/dL ALT 85 H 77 H (4-49) U/L Ur Specific [place] 1.041 H (1.001-1.035) Urine Protein 2+ H (Negative) Urine Glucose (UA) Trace H (Negative) Urine Ketones Trace H (Negative) Urine Mucus Many H (None) /hpf 08/26/20 Range/Units 07:59 Sodium (137-145) mmol/L Carbon Dioxide (22-30) mmol/L Glucose (74-99) mg/dL POC Glucose (mg/dL) 138 H (75-99) mg/dL Total Bilirubin (0.2-1.3) mg/dL ALT (4-49) U/L Ur Specific [place] (1.001-1.035) Urine Protein (Negative) Urine Glucose (UA) (Negative) Urine Ketones (Negative) Urine Mucus (None) /hpf
--- NOTE | 2020-08-26 13:36 | P.CRDCN ---
History of Present Illness History of present illness: HISTORY OF PRESENTING ILLNESS This is a pleasant 49-year-old male past medical history significant for hypertension, diabetes mellitus, COPD, sleep apnea and obesity. He follows in the office with Dr. Valle. We have been asked to see in consultation for pre-operative evaluation. He presented to the ER with symptoms of abdominal pain and fever. He is scheduled to undergo cholecystectomy tomorrow with Dr. Ramos. He is seen and examined laying flat in bed in no acute distress. He denies chest pain, shortness of breath, dizziness or palpitations. He follows with a internal control analyst secondary to questionable mitral valve prolapse. He states he underwent a SHIRLEY and was told he does NOT have prolapse. 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 He denies exertional chest pain or shortness of breath. DIAGNOSTICS EKG reveals sinus mechanism with first degree AV block heart rate [address] or T-wave abnormalities. Laboratory reviewed, WBC 4.6, hemoglobin 12.7, platelets 195, sodium 135, potassium 4.2, creatinine 0.99. Current cardiac medications include lisinopril 10 mg daily. REVIEW OF SYSTEMS At the time of my exam: CONSTITUTIONAL: Denies fever or chills. CARDIOVASCULAR: Denies chest pain, shortness of breath, orthopnea, PND or palpitations. RESPIRATORY: Denies cough. GASTROINTESTINAL: Denies abdominal pain, diarrhea, constipation, nausea or vomiting. MUSCULOSKELETAL: Denies myalgias. NEUROLOGIC: Denies numbness, tingling, headacbe or weakness. ENDOCRINE: Denies fatigue, weight change, polydipsia or polyurina. GENITOURINARY: Denies burning, hematuria or urgency with micturation. HEMATOLOGIC: Denies history of anemia or bleeding. PHYSICAL EXAMINATION Blood pressure 126/78 heart rate 67 afebrile and maintaining oxygen saturation on room air. CONSTITUTIONAL: No apparent distress. Obese. HEENT: Head is normocephalic. Pupils are equal, round. Sclerae anicteric. Mucous membranes of the mouth are moist. No JVD. No carotid bruit. CHEST EXAMINATION: Lungs are clear to auscultation. No chest wall tenderness is noted on palpation or with deep breathing. HEART EXAMINATION: Regular rate and rhythm. S1, S2 heard. No murmurs, gallops or rub. ABDOMEN: Soft, nontender. Positive bowel sounds. EXTREMITIES: 2+ peripheral pulses, no lower extremity edema and no calf tenderness. NEUROLOGIC EXAMINATION: Patient is awake, alert and oriented x3. ASSESSMENT Pre-operative evaluation Abdominal pain Hypertension Diabetes mellitus COPD Sleep apnea Obesity, BMI 32 PLAN Clinically the patient is euvolemic with no symptoms of angina or heart failure. Given his history of diabetes mellitus the current recommendations are for moderate intensity statins. Initiate atorvastatin 40 mg daily. Echocardiogram has been obtained and will be reviewed. Overall, he is moderate risk for surgery secondary to his co-morbid conditions specifically diabetes. He has no evidence of coronary artery disease or heart failure. There are no absolute contraindications to undergo surgical intervention. Thank you kindly for this consultation. Nurse Practitioner note has been reviewed, I agree with a documented findings and plan of care. Patient was seen and examined. Past Medical History Past Medical History: Asthma, COPD, Diabetes Mellitus, GERD/Reflux, Hyper tension, Sleep Apnea/CPAP/BIPAP Additional Past Medical History / Comment(s): cellulitis left elbow History of Any Multi-Drug Resistant Organisms: None Reported Past Surgical History: Orthopedic Surgery Past Psychological History: Anxiety Smoking Status: Former smoker Past Alcohol Use History: Occasional Past Drug Use History: None Reported Medications and Allergies Home Medications Medication Instructions Recorded Confirmed Type ALPRAZolam [Xanax] 0.25 mg PO BID PRN 08/25/20 08/25/20 History Albuterol Inhaler [Ventolin Hfa 2 puff INHALATION QID PRN 08/25/20 08/25/20 History Inhaler] Cyclobenzaprine [Flexeril] 5 mg PO TID PRN 08/25/20 08/25/20 History Dicyclomine [Bentyl] 20 mg PO AC-BID 08/25/20 08/25/20 History Fexofenadine HCl [Sol Allergy] 180 mg PO HS 08/25/20 08/25/20 History Fluticasone Nasal [place] [Flonase 2 spr EA NOSTRIL DAILY PRN 08/25/20 08/25/20 History Nasal [place]] Liraglutide [Victoza 3-Armond] 1.2 mg SQ DAILY 08/25/20 08/25/20 History Lisinopril [Prinivil] 10 mg PO DAILY 08/25/20 08/25/20 History Montelukast Sodium [Singulair] 10 mg PO DAILY 08/25/20 08/25/20 History Omeprazole 40 mg PO DAILY 08/25/20 08/25/20 History Sulfamethox-Tmp 800-160Mg [Bactrim 1 tab PO Q12H 08/25/20 08/25/20 History DS 800-160 mg] metFORMIN HCL [Glucophage] 1,000 mg PO BID 08/25/20 08/25/20 History Allergies Allergy/AdvReac Type Severity Reaction Status Date / Time codeine Allergy Rash/Hives Verified 08/25/20 17:01 diclofenac [From Cataflam] Allergy Unknown Verified 08/25/20 17:01 gemfibrozil [From Lopid] Allergy Rash/Hives Verified 08/25/20 17:01 metaxalone [From Skelaxin] Allergy Rash/Hives Verified 08/25/20 17:01 Physical Exam Vitals: Vital Signs Temp Pulse Pulse Resp BP BP Pulse Ox 08/26/20 08:45 67 08/26/20 08:33 68 08/26/20 07:00 99.8 F H 73 18 126/78 96 08/26/20 01:25 99.2 F 83 20 121/73 96 08/25/20 19:37 98.8 F 80 18 151/85 100 08/25/20 18:14 74 20 121/84 99 08/25/20 14:32 98.4 F 86 18 120/80 97 Intake and Output 08/25/20 08/26/20 08/26/20 22:59 06:59 14:59 Intake Total 2300 1100 Output Total 1 Balance 2299 1100 Intake: Intake, IV Titration 2300 1100 Amount Ampicillin-Sulbactam 1.5 100 100 gm In Sodium Chloride 0.9 % 50 ml @ 100 mls/hr IVPB Q6HR [facility] Rx#:[id number] Sodium Chloride 0.9% 1, 200 1000 000 ml @ 130 mls/hr IV . Q7H42M [facility] Rx#:[id number] Sodium Chloride 0.9% 1, 1000 000 ml @ 999 mls/hr IV . Q1H1M [facility] Rx#:[id number] Sodium Chloride 0.9% 1, 1000 000 ml @ 999 mls/hr IV . Q1H1M [facility] Rx#:[id number] Output: Urine 1 Other: Weight 129.274 kg Results 08/26/20 05:26 08/26/20 05:26 Cardiac Enzymes 08/25/20 08/26/20 Range/Units 15:08 05:26 AST 51 42 (17-59) U/L Coagulation 08/25/20 Range/Units 15:08 PT 10.2 (9.0-12.0) sec APTT 23.6 (22.0-30.0) sec CBC 08/25/20 08/26/20 Range/Units 15:08 05:26 WBC 5.7 4.64 (3.8-10.6) k/uL RBC 4.37 3.91 L (4.30-5.90) m/uL Hgb 14.6 12.7 L (13.0-17.5) gm/dL Hct 41.1 38.0 L (39.0-53.0) % Plt Count 204 195 (150-450) k/uL Comprehensive Metabolic Panel 08/25/20 08/26/20 Range/Units 15:08 05:26 Sodium 135 L 135 L (137-145) mmol/L Potassium 4.4 4.2 (3.5-5.1) mmol/L Chloride 102 103 (98-107) mmol/L Carbon Dioxide 20 L 23 (22-30) mmol/L BUN 19 16 (9-20) mg/dL Creatinine 1.08 0.99 (0.66-1.25) mg/dL Glucose 164 H 116 H (74-99) mg/dL Calcium 9.5 8.7 (8.4-10.2) mg/dL AST 51 42 (17-59) U/L ALT 85 H 77 H (4-49) U/L Alkaline Phosphatase 68 58 (38-126) U/L Total Protein 7.5 6.5 (6.3-8.2) g/dL Albumin 4.7 4.0 (3.5-5.0) g/dL Current Medications Generic Name Dose Route Start Last Admin Trade Name Freq PRN Reason Stop Dose Admin Acetaminophen 650 mg 08/25/20 17:36 08/26/20 08:13 Acetaminophen Tab 325 Mg Tab PO 650 mg Q6HR PRN Administration Mild Pain or Fever > 100.5 Albuterol Sulfate 2.5 mg 08/25/20 19:32 08/26/20 08:32 Albuterol Nebulized 2.5 Mg/3 Ml INHALATION 2.5 mg RT-QID PRN Administration Shortness Of Breath Alprazolam 0.25 mg 08/25/20 19:32 08/26/20 08:13 Alprazolam 0.25 Mg Tab PO 0.25 mg BID PRN Administration Anxiety Cyclobenzaprine HCl 5 mg 08/25/20 19:32 08/25/20 23:43 Cyclobenzaprine 5 Mg Tab PO 5 mg TID PRN Administration Muscle Spasm Dicyclomine HCl 20 mg 08/26/20 07:30 08/26/20 08:14 Dicyclomine 20 Mg Tab PO 20 mg AC-BID [facility] Administration Fluticasone Propionate 2 spray 08/25/20 19:32 Fluticasone 50mcg/[place] Nasal 16gm EA NOSTRIL DAILY PRN Allergy Symptoms Hydromorphone HCl 0.5 mg 08/25/20 17:36 Hydromorphone 0.5 Mg/0.5 Ml Syringe IVP Q3HR PRN Moderate Pain Hydromorphone HCl 1 mg 08/25/20 17:36 08/25/20 19:52 Hydromorphone 1 Mg/Ml 1 Ml Syringe IVP 1 mg Q3HR PRN Administration Severe Pain Sodium Chloride 1,000 mls @ 130 mls/hr 08/25/20 17:45 08/26/20 10:57 Saline 0.9% IV 130 mls/hr .Q7H42M [facility] Administration Ampicillin Sodium/Sulbactam 50 mls @ 100 mls/hr 08/25/20 18:15 08/26/20 11:45 Sodium 1.5 gm/ Sodium Chloride IVPB 100 mls/hr Q6HR [facility] Administration Insulin Aspart 0 unit 08/26/20 00:00 08/26/20 12:47 Insulin Aspart (Novolog) 100 Unit/Ml Vial SQ Not Given Q6HR [facility] Protocol Lisinopril 10 mg 08/25/20 19:45 08/26/20 08:14 Lisinopril 10 Mg Tab PO 10 mg DAILY [facility] Administration Loratadine 10 mg 08/25/20 21:00 08/25/20 19:52 Loratadine 10 Mg Tab PO 10 mg HS [facility] Administration Montelukast Sodium 10 mg 08/25/20 19:45 08/26/20 08:13 Montelukast 10 Mg Tab PO 10 mg DAILY [facility] Administration Naloxone HCl 0.2 mg 08/25/20 17:36 Naloxone 0.4 Mg/Ml 1 Ml Vial IV Q2M PRN Opioid Reversal Non-Formulary Medication 1.2 mg 08/26/20 09:00 08/26/20 08:21 Liraglutide [Victoza 3-Armond] SQ Not Given DAILY [facility] Ondansetron HCl 4 mg 08/26/20 11:02 Ondansetron 4 Mg/2 Ml Vial IVP Q6HR PRN Nausea And Vomiting Pantoprazole Sodium 40 mg 08/26/20 09:00 08/26/20 08:13 Pantoprazole 40 Mg/10 Ml Vial IV 40 mg DAILY [facility] Administration Intake and Output 08/25/20 08/26/20 08/26/20 22:59 06:59 14:59 Intake Total 2300 1100 Output Total 1 Balance 2299 1100 Intake: Intake, IV Titration 2300 1100 Amount Ampicillin-Sulbactam 1.5 100 100 gm In Sodium Chloride 0.9 % 50 ml @ 100 mls/hr IVPB Q6HR [facility] Rx#:[id number] Sodium Chloride 0.9% 1, 200 1000 000 ml @ 130 mls/hr IV . Q7H42M [facility] Rx#:[id number] Sodium Chloride 0.9% 1, 1000 000 ml @ 999 mls/hr IV . Q1H1M [facility] Rx#:[id number] Sodium Chloride 0.9% 1, 1000 000 ml @ 999 mls/hr IV . Q1H1M [facility] Rx#:[id number] Output: Urine 1 Other: Weight 129.274 kg 08/26/20 05:26 08/26/20 05:26
[2020-08-26] MEDS: HEPARIN SODIUM,PORCINE/PF 5,000 UNIT/0.5 ML SYRINGE SQ SCH (16:22)
[2020-08-26 17:35] LABS: Glucose,Whole Blood 135 mg/dL (75-99)
--- NOTE | 2020-08-26 17:35 | ECHOF ---
Referral Reason:Abnormal EKG, chest pain MEASUREMENTS -------- HEIGHT: 198.1 cm WEIGHT: 129.3 kg BP: 126/78 RVIDd: 3.9 cm (< 3.3) IVSd: 1.3 cm (0.6 - 1.1) LVIDd: 4.9 cm (3.9 - 5.3) LVPWd: 1.3 cm (0.6 - 1.1) IVSs: 1.8 cm LVIDs: 3.2 cm LVPWs: 1.9 cm LA Diam: 3.7 cm (2.7 - 3.8) LAESV Index (A-L): 21.92 ml/m Ao Diam: 3.7 cm (2.0 - 3.7) AV Cusp: 2.8 cm (1.5 - 2.6) MV EXCURSION: 26.941 mm (> 18.000) MV EF SLOPE: 100 mm/s (70 - 150) EPSS: 0.4 cm MV E Rakesh: 0.81 m/s MV DecT: 230 ms MV A Rakesh: 0.54 m/s MV E/A Ratio: 1.49 RAP: 5.00 mmHg RVSP: 21.28 mmHg FINDINGS -------- Sinus rhythm. This was a technically adequate study. The left ventricular size is normal. There is mild concentric left ventricular hypertrophy. Overa ll left ventricular systolic function is normal with, an EF between 60 - 65 %. The right ventricle is moderately enlarged. Normal LA size by volume 22+/-6 ml/m2. The right atrium is normal in size. Interatrial and interventricular septum intact. The aortic valve is trileaflet, and appears structurally normal. No aortic stenosis or regurgitation. 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 No regurgitation noted Right ventricular systolic pressure is normal at < 35 mmHg. Trace/mild (physiologic) pulmonic regurgitation. The aortic root size is normal. Normal inferior vena cava with normal inspiratory collapse consistent with estimated right atrial pre ssure of 5 mmHg. There is no pericardial effusion. CONCLUSIONS -------- 1. The left ventricular size is normal. 2. There is mild concentric left ventricular hypertrophy. 3. Overall left ventricular systolic function is normal with, an EF between 60 - 65 %. 4. The right ventricle is moderately enlarged. 5. Normal LA size by volume 22+/-6 ml/m2. 6. The aortic valve is trileaflet, and appears structurally normal. No aortic stenosis or regurgitati on. 7. abnormal chordal structure of unclear clinical significance 8. No regurgitation noted 9. Trace/mild (physiologic) pulmonic regurgitation. 10. There is no pericardial effusion. SHOPPER'S AIDE: Norah Smith RDCS
[2020-08-26 20:48] LABS: Glucose,Whole Blood 163 mg/dL (75-99)
[2020-08-26] MEDS ORDERED: LOPERAMIDE 2 MG CAP PO PRN (21:11)
[2020-08-26] MEDS: LORATADINE 10 MG TAB PO SCH (22:14)
[2020-08-26] MEDS: ATORVASTATIN 40 MG TAB PO SCH (22:14)
[2020-08-26] MEDS: CYCLOBENZAPRINE 5 MG TAB PO PRN (23:02)
[2020-08-27] MEDS: HEPARIN SODIUM,PORCINE/PF 5,000 UNIT/0.5 ML SYRINGE SQ SCH ×3 (03:34→16:18)
[2020-08-27] MEDS: INSULIN ASPART (NovoLOG) 100 UNIT/ML VIAL SQ SCH ×4 (03:34→20:37)
[2020-08-27] MEDS: SODIUM CHLORIDE 0.9% 1,000 ML IV SCH ×3 (03:35→20:15)
[2020-08-27] MEDS: AMPICILLIN-SULBACTAM 1.5 GM in SODIUM CHLORIDE 0.9% 50 ML IVPB SCH ×3 (05:55→20:50)
[2020-08-27 07:03] LABS: ALT 75 U/L (4-49); AST 39 U/L (17-59); African American GFR (CKD) >90 (>60 ml/min/1.73 sqM); Albumin 3.7 g/dL (3.5-5.0); Albumin/Globulin Ratio 1.5; Alkaline Phosphatase 53 U/L (38-126); Anion Gap 5 mmol/L; Blood Urea Nitrogen 15 mg/dL (9-20); Calcium 8.9 mg/dL (8.4-10.2); Carbon Dioxide 28 mmol/L (22-30); Chloride 108 mmol/L (98-107); Globulin 2.4 g/dL; Glucose 133 mg/dL (74-99); Non-African American GFR(CKD) >90 (>60 ml/min/1.73 sqM); Potassium 4.5 mmol/L (3.5-5.1); Sodium 141 mmol/L (137-145); Total Bilirubin 0.7 mg/dL (0.2-1.3); Total Protein 6.1 g/dL (6.3-8.2)
[2020-08-27 07:30] LABS: Glucose,Whole Blood 139 mg/dL (75-99)
[2020-08-27] MEDS ORDERED: ACETAMINOPHEN TAB 500 MG TAB PO PRN (07:44)
[2020-08-27] MEDS ORDERED: TAMSULOSIN 0.4 MG CAP.ER.24H PO PRN (07:44)
[2020-08-27] MEDS ORDERED: GABAPENTIN 300 MG CAP PO PRN (07:44)
[2020-08-27] MEDS ORDERED: MELOXICAM 7.5 MG TAB PO PRN (07:44)
[2020-08-27] MEDS ORDERED: INDOCYANINE GREEN 25 MG VIAL IV PRN (07:49)
[2020-08-27] MEDS ORDERED: ceFAZolin 3 GM in SODIUM CHLORIDE 0.9% 100 ML IVPB PRN (07:54)
[2020-08-27 09:07] LABS: % Iron Saturation 14.65 (15.00-50.00)
[2020-08-27] MEDS: NON FORMULARY DRUG (Liraglutide [Victoza 3-Pak] 0.6 MG/0.1 ML Pen.Injctr) SQ SCH (09:27)
[2020-08-27] MEDS: MONTELUKAST 10 MG TAB PO SCH (09:28)
[2020-08-27] MEDS: PANTOPRAZOLE 40 MG/10 ML VIAL IV SCH (09:28)
[2020-08-27] MEDS: lisinopriL 10 MG TAB PO SCH (09:28)
[2020-08-27] MEDS: DICYCLOMINE 20 MG TAB PO SCH ×2 (09:28→20:36)
[2020-08-27] MEDS: ALPRAZolam 0.25 MG TAB PO PRN (09:39)
--- NOTE | 2020-08-27 11:09 | P.HPADDEND ---
H&P Addendum H&P Addendum Date: 08/27/20 Cardiology risk assessment completed. Patient reports intermittent low grade fevers. CT findings reviewed with normal appendix, bilateral fat containing inguinal hernia with umbilical hernia. Mesh repair contra-indicated in cholecystitis for hernia repairs. Postoperative recovery described including follow-up in the office. Robotic cholecystectomy reviewed. All questions addressed.
[2020-08-27 11:17] LABS: Glucose,Whole Blood 134 mg/dL (75-99)
--- NOTE | 2020-08-27 13:05 | P.PN ---
Subjective Progress Note Date: 08/27/20 (delayed charting seen at 0930) Principal diagnosis: abd pain Patient is a 49-year-old male with a history of hypertension, diabetes, and COPD who presented to the hospital with complaints of abdominal pain and chronic diarrhea. He has been seen by general surgery and plans are for a lap hong today. Seen and examined at bedside. His abdominal pain is currently resolved, but is intermittent. He reports that he has had chronic diarrhea since clothing. He has had a colonoscopy in the past and thinks it is somewhere between 3-5 years ago. We discussed the importance of following up with GI after discharge for causes of chronic diarrhea. General: non toxic, no distress, appears at stated age Derm: warm, dry Head: atraumatic, normocephalic, symmetric Eyes: EOMI, no lid lag, anicteric sclera Mouth: no lip lesion, mucus membranes moist Cardiovascular: S1S2 reg, no murmur, positive posterior tibial pulse bilateral, Lungs: CTA bilateral, no rhonchi, no rales , no accessory muscle use Abdominal: soft, tender to palpation right upper quadrant, no guarding, no appreciable organomegaly Ext: no gross muscle atrophy, no edema, no contractures Neuro: CN II-XI grossly intact, no focal neuro deficits Psych: Alert, oriented, appropriate affect Symptomatic gallbladder disease -Plans for a lap hong today -Surgery recommendations -Continue with Unasyn Chronic diarrhea - consider stopping metfromin and if no improvement then outpatient GI follow-up Hypertension -Continue with lisinopril -Follow blood pressures Diabetes mellitus type 2 [id number] -Hold metformin, victoza -Sliding-scale insulin COPD without exacerbation -When necessary bronchodilators -Singulair Anticipated discharge: At the discretion of surgery, medically optimized for discharge when appropriate A total of 25 minutes was spent on the care of this complex patient more than 50% of the time was spent in counseling and care coordination. Objective - Vital Signs Vital signs: Vital Signs Temp 97.6 F 08/27/20 07:00 Pulse 64 08/27/20 07:00 Resp 17 08/27/20 07:00 BP 125/74 08/27/20 07:00 Pulse Ox 97 08/27/20 07:00 Intake & Output 08/26/20 08/27/20 08/27/20 18:59 06:59 18:59 Intake Total 50 1855 Balance 50 1855 Intake: Intake, IV Titration 50 1855 Amount Ampicillin-Sulbactam 1.5 50 250 gm In Sodium Chloride 0.9 % 50 ml @ 100 mls/hr IVPB Q6HR [facility] Rx#:[id number] Sodium Chloride 0.9% 1, 1605 000 ml @ 130 mls/hr IV . Q7H42M [facility] Rx#:[id number] Other: Voiding Method Toilet - Labs CBC & Chem 7: 08/26/20 05:26 08/27/20 06:20 Labs: Abnormal Lab Results - Last 24 Hours (Table) 08/26/20 08/26/20 08/26/20 Range/Units 05:26 05:26 17:33 Chloride (98-107) mmol/L Glucose (74-99) mg/dL POC Glucose (mg/dL) 135 H (75-99) mg/dL Iron 40 L (65-175) ug/dL % Saturation 14.65 L (15.00-50.00) Ferritin 846.6 H (22.0-322.0) ng/mL ALT (4-49) U/L Total Protein (6.3-8.2) g/dL 08/26/20 08/27/20 08/27/20 Range/Units 20:46 06:20 07:29 Chloride 108 H (98-107) mmol/L Glucose 133 H (74-99) mg/dL POC Glucose (mg/dL) 163 H 139 H (75-99) mg/dL Iron (65-175) ug/dL % Saturation (15.00-50.00) Ferritin (22.0-322.0) ng/mL ALT 75 H (4-49) U/L Total Protein 6.1 L (6.3-8.2) g/dL 08/27/20 Range/Units 11:15 Chloride (98-107) mmol/L Glucose (74-99) mg/dL POC Glucose (mg/dL) 134 H (75-99) mg/dL Iron (65-175) ug/dL % Saturation (15.00-50.00) Ferritin (22.0-322.0) ng/mL ALT (4-49) U/L Total Protein (6.3-8.2) g/dL Microbiology - Last 24 Hours (Table) 08/26/20 05:26 Blood Culture - Preliminary Blood No Growth after 24 hours
--- NOTE | 2020-08-27 15:44 | PN ---
PROGRESS NOTE This is a 49-year-old gentleman that we were consulted for preop cardiac evaluation. Underwent an echocardiogram that showed normal LV systolic function. Mitral valve leaflet appeared thickened and redundant, but he states that he already had a transesophageal echo ( ) abnormality and was told he did not have any significant valvular heart disease and currently follows with a telecom assistant up [place]. He is doing well. PHYSICAL EXAM: Vital signs are stable. He is free of chest pain or difficulty in breathing. He is an acceptable risk candidate for surgery under anesthesia. MMODL / IJN: [id number] /
[2020-08-27 16:03] LABS: Glucose,Whole Blood 110 mg/dL (75-99)
[2020-08-27] MEDS ORDERED: LACTATED RINGERS 1,000 ML IV ONE (16:05)
[2020-08-27] MEDS ORDERED: DEXAMETHASONE SOD PHOSPHATE 4 MG/ML 1 ML VIAL IVP ONE (16:13)
[2020-08-27] MEDS ORDERED: HYDROmorphone (PF) 1 MG/ML ONE (17:04)
[2020-08-27] MEDS ORDERED: MIDAZOLAM 2 MG/2 ML VIAL ONE (17:04)
[2020-08-27] MEDS ORDERED: PROPOFOL 10 MG/ML 20 ML VIAL IV ONE (17:04)
[2020-08-27] MEDS ORDERED: NEOSTIGMINE 1 MG/ML 10 ML VIAL ONE (17:04)
[2020-08-27] MEDS ORDERED: LIDOCAINE 1% INJ 10MG/ML (20 ML MDV) ONE (17:04)
[2020-08-27] MEDS ORDERED: fentaNYL (PF) 50 MCG/ML 2 ML AMP ONE (17:04)
[2020-08-27] MEDS ORDERED: GLYCOPYRROLATE 0.2 MG/ML 2 ML VIAL ONE (17:04)
[2020-08-27] MEDS ORDERED: ROCURONIUM 10 MG/ML (5 ML VIAL) IV ONE (17:04)
[2020-08-27] MEDS ORDERED: KETOROLAC 15 MG/ML 1 ML VIAL ONE (17:04)
[2020-08-27] MEDS ORDERED: SUCCINYLCHOLINE CHLORIDE 100 MG/5 ML SYR IV ONE (17:04)
[2020-08-27] MEDS ORDERED: BUPIVACAINE (PF) 0.25% 30 ML VIAL SQ ONE (17:38)
--- NOTE | 2020-08-27 18:51 | P.OP ---
Date of Procedure: 08/27/20 Description of Procedure: SURGEON: EMBER DAILEY MD PREOPERATIVE DIAGNOSES: 1. Acute cholecystitis 2. Symptomatic gallstones 3. Diabetes type 2, [id number] 4. Hypertensive heart disease 5. Gastroesophageal reflux disease 6. Chronic obstructive pulmonary disease due to asthma 7. Generalized anxiety disorder 8. Chronic lower back pain 9. Obesity due to excess calories, BMI 32.9 10. Obstructive sleep apnea POSTOPERATIVE DIAGNOSES: 1. Acute cholecystitis with cystic duct obstruction due to gallstones 2. Symptomatic gallstones 3. Diabetes type 2, [id number] 4. Hypertensive heart disease 5. Gastroesophageal reflux disease 6. Chronic obstructive pulmonary disease due to asthma 7. Generalized anxiety disorder 8. Chronic lower back pain 9. Obesity due to excess calories, BMI 32.9 10. Obstructive sleep apnea 11. Fatty liver disease OPERATION: Robotic-assisted da Josef Xi laparoscopic cholecystectomy, multiport with FIREFLY ESTIMATED BLOOD LOSS: 5 mL. SPECIMENS REMOVED: Gallbladder. COMPLICATIONS: None. OPERATIVE FINDINGS: 1. Moderate fatty liver disease 2. Fatty gallbladder with adhesions of duodenum to infundibulum of the gallbladder adding complexity to the case INDICATIONS: The patient is a 49 year-old male who presents with epigastric right upper quadrant pain, symptomatic gallstones, and clinical features of acute cholecystitis. Surgical intervention with cholecystectomy was described. Robotic assisted laparoscopic approach was described. Benefits and risks of the procedure including but not limited to bleeding, infection, injury to the biliary tree was reviewed. Informed consent was obtained. DESCRIPTION OF PROCEDURE: Patient was brought to the operating room, placed in supine position. After general induction, the abdomen had been prepped and draped in standard sterile fashion. The robotic da Josef XI system was primed. After a timeout protocol was performed, the patient had been prepped and draped in standard sterile fashion. The patient was injected with indocyanine green. A 5 mm 0 degrees laparoscopic trocar entry was performed along the left upper quadrant. The abdomen insufflated to 15 mmHg pressure which was tolerated well. Diagnostic laparoscopy demonstrated no injury to bowel viscera or mesentery. The liver surface was unremarkable. A moderately distended gallbladder was identified adding complexity to the case. Next, two 8 mm robotic ports were placed along the right upper abdomen. The camera 8-mm port was maintained along the epigastrium. Another 8 mm port was placed along the left upper abdominal wall after exchanging the 5 mm port. Please note that the ports were placed at least 10 to 15 cm away from the target anatomy of the gallbladder. The robot was docked along the left lateral abdomen. The patient was repositioned in reverse Trendelenburg position with the right side up. Using a grasper for arm 3, a grasper for arm 4, including hook cautery for arm 1, the robotic system was docked and primed as described. Instruments were interchanged by the registered dental assistant including hook cautery, Bovie cautery and clip appliers. I had sat at the console. Moderate fatty liver was identified. Additionally, the gallbladder had moderate fatty tissue including adhesions of the infundibulum to the duodenum. The gallbladder was reflected towards the dome of the liver. The cystic structures were also embedded and moderate fatty tissue. Due obscurity of the cystic structures at the infundibulum, dome down technique was performed removing the gallbladder from the hepatic fossa starting from the fundus towards the infundibulum. Using a sponge, the liver was reflected towards the diaphragm and starting at the gallbladder fundus, hook cautery was used to find the avascular plane between the liver and the gallbladder. As the gallbladder was dissected from the hepatic fossa, hemostasis was checked . Next, indocyanine green was used to confirm the common bile duct as well as cystic duct. The cystic duct was short and dissection was performed at the junction of the cystic duct and infundibulum. The infundibulum was retracted laterally to expose the cystic duct away from the common bile duct. The cystic duct was dissected free from its surrounding tissue. FIREFLY was used to identify the cystic structures. A critical view of safety was obtained. Large PLASTIC clips were used throughout the entire case. Using a clip pin sorter and bagger, a clip was placed at the junction of the infundibulum and cystic duct. The cystic duct was divided using vessel sealer. Next, the cystic artery was divided using vessel sealer. Electro-Bovie cautery and vessel sealer was used to remove the gallbladder without decompression. Hemostasis was checked and found to be adequate. The robot was undocked. I re-scrubbed into the case. A 10 mm Endo Catch bag was used to remove the gallbladder in total via the left upper quadrant incision after widening the incision. The specimen was removed from the abdominal cavity. The fascial defect was less than 8 mm in size. All pneumoperitoneum instruments were evacuated from the abdominal cavity. The incisions were cleansed using dilute hydrogen peroxide. The incisions were reapproximated using 4-0 Monocryl in an interrupted subcuticular fashion. Please note along the trocar sites, local anesthetic was placed as a field block prior to insertion of all instruments. Liquid glue was applied to the skin. At the end of the procedure needle, sponge, and instrument count had been verified correct by the solar installer technician. The patient was transferred to postanesthesia care unit in stable condition. Intraoperative films were shared with the patient's family who were pleased with the level of care.
[2020-08-27] MEDS ORDERED: SODIUM CHLORIDE 0.9% 1,000 ML IV ONE (19:33)
[2020-08-27 20:09] LABS: Glucose,Whole Blood 184 mg/dL (75-99)
[2020-08-27] MEDS: LORATADINE 10 MG TAB PO SCH (20:36)
[2020-08-27] MEDS: ATORVASTATIN 40 MG TAB PO SCH (20:36)
[2020-08-27] MEDS: KETOROLAC 15 MG/ML 1 ML VIAL IVP SCH (20:47)
[2020-08-27] MEDS: CYCLOBENZAPRINE 5 MG TAB PO PRN (21:04)
[2020-08-27] MEDS: ACETAMINOPHEN TAB 325 MG TAB PO PRN (21:33)
[2020-08-28] MEDS: SODIUM CHLORIDE 0.9% 1,000 ML IV SCH ×2 (00:48→09:40)
[2020-08-28] MEDS: INSULIN ASPART (NovoLOG) 100 UNIT/ML VIAL SQ SCH (00:49)
[2020-08-28] MEDS: HEPARIN SODIUM,PORCINE/PF 5,000 UNIT/0.5 ML SYRINGE SQ SCH ×2 (00:50→08:20)
[2020-08-28] MEDS: AMPICILLIN-SULBACTAM 1.5 GM in SODIUM CHLORIDE 0.9% 50 ML IVPB SCH ×3 (01:30→11:19)
[2020-08-28] MEDS: KETOROLAC 15 MG/ML 1 ML VIAL IVP SCH ×3 (01:31→11:18)
[2020-08-28 07:27] LABS: Glucose,Whole Blood 161 mg/dL (75-99)
[2020-08-28] MEDS ORDERED: INSULIN ASPART (NovoLOG) 100 UNIT/ML VIAL SQ SCH (07:30)
[2020-08-28 08:06] VITALS: BP 119/74; PULSE 65; RESP 18; TEMP 98.2
[2020-08-28] MEDS: NON FORMULARY DRUG (Liraglutide [Victoza 3-Pak] 0.6 MG/0.1 ML Pen.Injctr) SQ SCH (08:06)
[2020-08-28] MEDS: ALPRAZolam 0.25 MG TAB PO PRN (08:20)
[2020-08-28] MEDS: MONTELUKAST 10 MG TAB PO SCH (08:20)
[2020-08-28] MEDS: PANTOPRAZOLE 40 MG/10 ML VIAL IV SCH (08:20)
[2020-08-28] MEDS: DICYCLOMINE 20 MG TAB PO SCH (08:20)
[2020-08-28] MEDS: lisinopriL 10 MG TAB PO SCH (08:20)
[2020-08-28 09:18] LABS: Albumin 3.8 g/dL (3.80-4.90); Albumin/Globulin Ratio 1.81 (1.60-3.17); Anion Gap 9.3 mmol/L (4.00-12.00); Calcium 8.6 mg/dL (8.7-10.3); Carbon Dioxide 23.7 mmol/L (21.6-31.8); Globulin 2.1 g/dL (1.6-3.3); Potassium 4.5 mmol/L (3.5-5.5); Total Bilirubin 0.7 mg/dL (0.3-1.2); Total Protein 5.9 g/dL (6.2-8.2)
[2020-08-28 09:19] LABS: Basophils # (A) 0.01 X 10*3/uL (0.00-0.10); Basophils % (A) 0.1 %; Eosinophils # (A) 0.03 X 10*3/uL (0.04-0.35); Eosinophils % (A) 0.4 %; HCT 34.9 % (39.6-50.0); HGB 11.8 g/dL (13.0-17.0); Lymphocytes # (A) 1.62 X 10*3/uL (0.90-5.00); MCH 32.7 pg (27.0-32.0); MCHC 33.8 g/dL (32.0-37.0); MCV 96.7 fL (80.0-97.0); Monocytes # (A) 0.35 X 10*3/uL (0.20-1.00); Monocytes % (A) 4.8 %; Platelet Count 215 X 10*3/uL (140-440); RBC 3.61 X 10*6/uL (4.40-5.60); RDW 12.7 % (11.5-14.5); WBC 7.36 X 10*3/uL (4.50-10.00)
[2020-08-28 11:43] LABS: Glucose,Whole Blood 235 mg/dL (75-99)
--- NOTE | 2020-08-28 11:51 | P.PN ---
Subjective Progress Note Date: 08/28/20 Physical pleasant 49-year-old gentleman with a past medical history of hypertension, diabetes, sleep apnea, COPD and obesity. He [place] with Dr. [place] [facility] [place] There was some question in the past of some mitral valve prolapse for which he was evaluated with [facility] and was told that he did not have any significant valvular abnormalities. He follows with his uniform attendant on a regular basis. Presented to the emergency department with symptoms of abdominal pain and fever. We were asked to the patient in consultation for preoperative evaluation. Patient underwent cholecystectomy yesterday by Dr. Ramos. Postoperative he is feeling well. He has some abdominal tenderness but no further fever or abdominal pain similar to what brought him to the hospital. He is stable from cardiac standpoint. Objective - Vital Signs Vital signs: Vital Signs Temp 98.2 F 08/28/20 08:05 Pulse 65 08/28/20 08:05 Resp 18 08/28/20 08:05 BP 119/74 08/28/20 08:05 Pulse Ox 96 08/28/20 08:05 Intake & Output 08/27/20 08/28/20 08/28/20 18:59 06:59 18:59 Intake Total 1050 100 Output Total 5 Balance 1045 100 Intake: IV 1000 100 Intake, IV Titration 50 Amount Ampicillin-Sulbactam 1.5 50 gm In Sodium Chloride 0.9 % 50 ml @ 100 mls/hr IVPB Q6HR COUNT INCLUDES THE [facility] Rx#:[id number] Output: Estimated Blood Loss 5 Other: Voiding Method Toilet # Voids 4 2 2 - Exam PHYSICAL EXAMINATION: HEENT: Head is atraumatic, normocephalic. Pupils equal, round. Neck is supple. There is no elevated jugular venous pressure. HEART EXAMINATION: Heart sounds regular, S1 and S2 normal. No murmur or gallop heard. CHEST EXAMINATION: Lungs are clear to auscultation. No chest wall tenderness is noted on palpation or with deep breathing. ABDOMEN: Tender to palpation, puncture sites clean dry and intact with mild ecch ymosis. Bowel sounds are heard. EXTREMITIES: 2+ peripheral pulses with no evidence of peripheral edema and no calf tenderness noted. NEUROLOGIC patient is awake, alert and oriented x3. . - Labs CBC & Chem 7: 08/28/20 05:19 08/28/20 05:19 Labs: Abnormal Lab Results - Last 24 Hours (Table) 08/27/20 08/27/20 08/28/20 Range/Units 16:02 20:08 05:19 RBC 3.61 L (4.40-5.60) X 10*6/uL Hgb 11.8 L (13.0-17.0) g/dL Hct 34.9 L (39.6-50.0) % MCH 32.7 H (27.0-32.0) pg Immature Gran # 0.05 H (0.00-0.04) X 10*3/uL Eosinophils # 0.03 L (0.04-0.35) X 10*3/uL Glucose (70-110) mg/dL POC Glucose (mg/dL) 110 H 184 H (75-99) mg/dL Calcium (8.7-10.3) mg/dL AST (14-35) U/L ALT (10-49) U/L Total Protein (6.2-8.2) g/dL 08/28/20 08/28/20 08/28/20 Range/Units 05:19 07:26 11:42 RBC (4.40-5.60) X 10*6/uL Hgb (13.0-17.0) g/dL Hct (39.6-50.0) % MCH (27.0-32.0) pg Immature Gran # (0.00-0.04) X 10*3/uL Eosinophils # (0.04-0.35) X 10*3/uL Glucose 179 H (70-110) mg/dL POC Glucose (mg/dL) 161 H 235 H (75-99) mg/dL Calcium 8.6 L (8.7-10.3) mg/dL AST 64 H (14-35) U/L ALT 113 H (10-49) U/L Total Protein 5.9 L (6.2-8.2) g/dL Microbiology - Last 24 Hours (Table) 08/26/20 05:26 Blood Culture - Preliminary Blood No Growth after 48 hours Assessment and Plan Assessment: #1 abdominal pain, secondary to acute cholecystitis, status post lap hong #2 hypertension #3 diabetes mellitus #4 COPD #5 sleep apnea #6 obesity Plan: From uniform attendant perspective patient is stable for discharge home. He will follow-up with his regular uniform attendant as previously directed. GASKET SUPERVISOR note has been reviewed, I agree with a documented findings and plan of care. Patient was seen and examined.
--- NOTE | 2020-08-28 12:11 | P.PN ---
Progress Note - Text Progress Note Date: 08/28/20 Patient feels well. He denies any significant abdominal pain. He is requesting discharge. On exam vital signs are stable. Abdomen soft. Patiently discharged home. He'll follow Dr. lOiver
--- NOTE | 2020-08-28 14:01 | P.PN ---
Subjective Progress Note Date: 08/28/20 Patient seen and examined at bedside. Patient is alert and awake eating breakfast. Patient is tolerating his food well. Patient is eager to go home. Patient does admit to mild post-surgical pain otherwise insignificant. Patient is postop day 1 laparoscopic cholecystectomy. Objective - Vital Signs Vital signs: Vital Signs Temp 98.2 F 08/28/20 08:05 Pulse 65 08/28/20 08:05 Resp 18 08/28/20 08:05 BP 119/74 08/28/20 08:05 Pulse Ox 96 08/28/20 08:05 Intake & Output 08/27/20 08/28/20 08/28/20 18:59 06:59 18:59 Intake Total 1050 100 Output Total 5 Balance 1045 100 Intake: IV 1000 100 Intake, IV Titration 50 Amount Ampicillin-Sulbactam 1.5 50 gm In Sodium Chloride 0.9 % 50 ml @ 100 mls/hr IVPB Q6HR [facility] Rx#:[id number] Output: Estimated Blood Loss 5 Other: Voiding Method Toilet # Voids 4 2 2 - Constitutional General appearance: Present: obese - EENT Eyes: Present: PERRLA - Respiratory Respiratory: bilateral: CTA - Cardiovascular Rhythm: regular Heart sounds: normal: S1, S2 - Gastrointestinal General gastrointestinal: Present: soft, tenderness - Integumentary Integumentary: Present: normal - Neurologic Neurologic: Present: CNII-XII intact - Psychiatric Psychiatric: Present: A&O x's 3, appropriate affect, intact judgment & insight - Labs CBC & Chem 7: 08/28/20 05:19 08/28/20 05:19 Labs: Abnormal Lab Results - Last 24 Hours (Table) 08/26/20 08/26/20 08/27/20 Range/Units 05:26 05:26 11:15 POC Glucose (mg/dL) 134 H (75-99) mg/dL Iron 40 L (65-175) ug/dL % Saturation 14.65 L (15.00-50.00) Ferritin 846.6 H (22.0-322.0) ng/mL 08/27/20 08/27/20 08/28/20 Range/Units 16:02 20:08 07:26 POC Glucose (mg/dL) 110 H 184 H 161 H (75-99) mg/dL Iron (65-175) ug/dL % Saturation (15.00-50.00) Ferritin (22.0-322.0) ng/mL Microbiology - Last 24 Hours (Table) 08/26/20 05:26 Blood Culture - Preliminary Blood No Growth after 48 hours Assessment and Plan Assessment: Symptomatic gallbladder disease -status post laparoscopic cholecystectomy postop day 1 -Surgery recommendations -Patient will likely go home today Chronic diarrhea - consider stopping metfromin and if no improvement then outpatient GI follow-up Hypertension -Continue with lisinopril -Follow blood pressures Diabetes mellitus type 2 [id number] -Hold metformin, victoza -Sliding-scale insulin COPD without exacerbation -When necessary bronchodilators -Singulair Anticipated discharge: At the discretion of surgery, medically optimized for discharge when appropriate A total of 26 minutes was spent on the care of this complex patient more than 50 % of the time was spent in counseling and care coordination.
== END 2020-08-28 12:05 | disposition home or self-care (01) ==
LOC: SUPCPDRO 14:30 → EC 14:30 → 6NMEDSUR 17:38
PROVIDERS: ADMIT Surgery Plastic and Reconstructive Surgery; ATTEND Surgery Plastic and Reconstructive Surgery
DX: K80.67 Calculus of gallbladder and bile duct with acute and chronic cholecystitis with obstruction (principal); K66.0 Peritoneal adhesions (postprocedural) (postinfection); K40.90 Unilateral inguinal hernia, without obstruction or gangrene, not specified as recurrent; K42.9 Umbilical hernia without obstruction or gangrene; I11.9 Hypertensive heart disease without heart failure; J44.9 Chronic obstructive pulmonary disease, unspecified; E11.9 Type 2 diabetes mellitus without complications; G47.33 Obstructive sleep apnea (adult) (pediatric); R16.1 Splenomegaly, not elsewhere classified; K76.0 Fatty (change of) liver, not elsewhere classified; K21.9 Gastro-esophageal reflux disease without esophagitis; K64.9 Unspecified hemorrhoids; K52.9 Noninfective gastroenteritis and colitis, unspecified; E66.09 Other obesity due to excess calories; Z68.32 Body mass index [BMI] 32.0-32.9, adult; I44.0 Atrioventricular block, first degree; F41.1 Generalized anxiety disorder; G89.29 Other chronic pain; M54.5 Low back pain; Z79.84 Long term (current) use of oral hypoglycemic drugs; Z79.899 Other long term (current) drug therapy; Z88.5 Allergy status to narcotic agent; Z88.8 Allergy status to other drugs, medicaments and biological substances; Z87.891 Personal history of nicotine dependence; Z86.16 Personal history of COVID-19; Z87.2 Personal history of diseases of the skin and subcutaneous tissue
CPT/HCPCS: 47562; S2900; 36415; 74177; 76705; 80053; 81001; 82150; 82728; 83540; 83550; 83605; 83690; 85025; 85610; 85730; 87040; 87324; 88304; 93005; 93306; 94640; 94660; 96361; 96374; 96375; 99284

== ENCOUNTER 2020-09-22 08:06 | Day surgery (SDC) | payer OTHER ==
[2020-09-20 11:06] VITALS: BMI 33.1
[~2020-09-22 08:06] MED LIST: LACTATED RINGERS 1,000 ML IV SCH; LIDOCAINE 1% (10MG/ML) FOR IV START INTRADERMA PRN
--- NOTE | 2020-09-22 08:42 | P.GSHP ---
History of Present Illness H&P Date: 09/22/20 CHIEF COMPLAINT: GERD and colon screen HISTORY OF PRESENT ILLNESS: The patient is a 50-year-old male who presents with gastroesophageal reflux disease and need for colon screen. Upper and lower endoscopy were offered for further evaluation and management. PAST MEDICAL HISTORY: Please see list. PAST SURGICAL HISTORY: Please see list. MEDICATIONS: Please see list. ALLERGIES: Please see list. SOCIAL HISTORY: No illicit drug use FAMILY HISTORY: No reports of Crohn disease or ulcerative colitis. REVIEW OF ORGAN SYSTEMS: CONSTITUTIONAL: No reports of fevers or chills. GI: Denies any blood in stools or constipation. PHYSICAL EXAM: VITAL SIGNS: Stable GENERAL: Well-developed pleasant in no acute distress. HEENT: No scleral icterus. Extraocular movements grossly intact. Moist buccal mucosa. NECK: Supple without lymphadenopathy. CHEST: Unlabored respirations. Equal bilateral excursions. CARDIOVASCULAR: Regular rate and rhythm. Distal 2+ pulses. ABDOMEN: Soft, nondistended. MUSCULOSKELETAL: No clubbing, cyanosis, or edema. ASSESSMENT: 1. Gastroesophageal reflux disease 2. Colon screen. PLAN: 1. Recommend proceeding with an upper and lower endoscopy Past Medical History Past Medical History: Asthma, COPD, Diabetes Mellitus, GERD/Reflux, Hypertension, Sleep Apnea/CPAP/BIPAP Additional Past Medical History / Comment(s): cellulitis left elbow. covid 12/26. loose stools History of Any Multi-Drug Resistant Organisms: None Reported Past Surgical History: Cholecystectomy, Orthopedic Surgery Past Anesthesia/Blood Transfusion Reactions: Previous Problems w/ Anesthesia Additional Past Anesthesia/Blood Transfusion Reaction / Comment(s): stopped breathing during echo Smoking Status: Former smoker Medications and Allergies Home Medications Medication Instructions Recorded Confirmed Type ALPRAZolam [Xanax] 0.25 mg PO BID PRN 08/25/20 09/20/20 History Albuterol Inhaler [Ventolin Hfa 2 puff INHALATION QID PRN 08/25/20 09/20/20 History Inhaler] Cyclobenzaprine [Flexeril] 5 mg PO TID PRN 08/25/20 09/20/20 History Fexofenadine HCl [Sol Allergy] 180 mg PO HS 08/25/20 09/20/20 History Fluticasone Nasal [place] [Flonase 2 spr EA NOSTRIL DAILY PRN 08/25/20 09/20/20 History Nasal [place]] Liraglutide [Victoza 3-Armond] 1.2 mg SQ DAILY 08/25/20 09/20/20 History Lisinopril [Prinivil] 10 mg PO DAILY 08/25/20 09/20/20 History Montelukast Sodium [Singulair] 10 mg PO DAILY 08/25/20 09/20/20 History Omeprazole 40 mg PO DAILY 08/25/20 09/20/20 History metFORMIN HCL [Glucophage] 1,000 mg PO BID 08/25/20 09/20/20 History Acetaminophen Tab [Tylenol Tab] 1,000 mg PO Q6HR PRN #30 tablet 08/27/20 09/20/20 Rx Ibuprofen [Motrin] 600 mg PO Q8HR PRN #30 tab 08/27/20 09/20/20 Rx Simethicone [Gas-X] 125 mg PO AC-TID PRN #20 capsule 08/27/20 09/20/20 Rx Ascorbic Acid [Vitamin C] 500 mg PO DAILY 09/20/20 09/20/20 History Cholecalciferol (Vitamin D3) 125 mcg PO DAILY 09/20/20 09/20/20 History [Vitamin D3 (125 MCG = 5,000 IU)] Loperamide HCl [Imodium A-D] 2 mg PO DAILY PRN 09/20/20 09/20/20 History [place]-3 Fatty Acids [[place]-3] 1,000 mg PO HS 09/20/20 09/20/20 History Zinc 50 mg PO DAILY 09/20/20 09/20/20 History Allergies Allergy/AdvReac Type Severity Reaction Status Date / Time codeine Allergy Rash/Hives Verified 09/20/20 10:51 diclofenac [From Cataflam] Allergy Unknown Verified 09/20/20 10:51 gemfibrozil [From Lopid] Allergy Rash/Hives Verified 09/20/20 10:51 metaxalone [From Skelaxin] Allergy Rash/Hives Verified 09/20/20 10:51
[2020-09-22 08:44] VITALS: TEMP 96.7
[2020-09-22 09:04] LABS: Glucose,Whole Blood 122 mg/dL (75-99)
[2020-09-22] MEDS ORDERED: fentaNYL (PF) 50 MCG/ML 2 ML AMP ONE (09:37)
[2020-09-22] MEDS ORDERED: MIDAZOLAM 2 MG/2 ML VIAL ONE (09:37)
[2020-09-22] MEDS ORDERED: PROPOFOL 10 MG/ML 20 ML VIAL IV ONE (09:37)
[2020-09-22] MEDS ORDERED: LIDOCAINE 1% INJ 10MG/ML (20 ML MDV) ONE (09:37)
[2020-09-22 10:11] VITALS: RESP 16
[2020-09-22 10:35] VITALS: BP 136/85; PULSE 73
--- NOTE | 2020-09-22 11:00 | P.PCN ---
Date of Procedure: 09/22/20 Description of Procedure: PREOPERATIVE DIAGNOSIS: Gastroesophageal reflux disease. POSTOPERATIVE DIAGNOSIS: Gastritis Gastroesophageal reflux disease. Diaphragmatic hiatal hernia OPERATION: Esophagogastroduodenoscopy with biopsies along antrum SURGEON: Stephanie Ramos MD ANESTHESIA: MAC. INDICATIONS: The patient is a 50-year-old male who presents with a history of reflux disease. Benefits and risks of the procedure were described. Informed consent was obtained. DESCRIPTION: The patient was brought into the endoscopy suite and laid in the left lateral decubitus position. An Olympus gastroscope was passed along the posterior oropharynx down to the distal esophagus where the squamocolumnar junction was encountered at 42 cm from the incisors. The stomach was entered and no bile reflux was found. Additional findings are listed below. Biopsies with cold forceps were obtained of the antrum. The first through third portion of the duodenum was examined and unremarkable. Retroflexion of the scope confirmed Hill grade 2 lower esophageal valve. The squamocolumnar junction demonstrated LA grade B erosive esophagitis. The stomach was desufflated. The patient tolerated the procedure well. FINDINGS: Squamocolumnar junction 42 cm from the incisors. Diaphragmatic hiatus at 42 cm. Hill grade 2 lower esophageal valve. LA grade B erosive esophagitis. No active duodenitis. Chronic gastritis RECOMMENDATIONS: Upper endoscopy as needed.
--- NOTE | 2020-09-22 11:02 | P.PCN ---
Date of Procedure: 09/22/20 Description of Procedure: PREOPERATIVE DIAGNOSIS: Colonoscopy screening. POSTOPERATIVE DIAGNOSIS: Colonoscopy screening. Diverticulosis, scattered. OPERATION: Colonoscopy to the cecum, ileocecal valve and appendiceal orifice. SURGEON: Stephanie Ramos MD. ANESTHESIA: MAC. INDICATIONS: The patient is a 50-year-old male who presents for his first colonoscopy screening. Benefits and risks were described and informed consent was obtained. DESCRIPTION OF PROCEDURE: The patient had undergone Sutab prep. The patient had been brought into the operating room and laid in the left lateral decubitus position. After adequate intravenous sedation, the rectum was examined with 2% lidocaine jelly. The p rostate was unremarkable. External hemorrhoids were encountered. The rectal tone was within normal limits. No lesions were palpated in the rectal vault. An Olympus colonoscope was advanced until the cecum, ileocecal valve and appendiceal orifice were clearly viewed. The prep was excellent. Scattered diverticulosis was encountered. No colonic polyps were found. No evidence of focal colitis was found. Retroflexion of the scope demonstrated grade 4 internal hemorrhoids without active bleeding or inflammation. The colon was desufflated. The patient had tolerated the procedure well. Withdrawal time was over 6 minutes. FINDINGS: Aronchick preparation quality scale 1 (1-5) Internal hemorrhoids, grade 4 External prolapsed hemorrhoids, grade 4 No arteriovenous malformations. No adenomatous polyps. No focal colitis. RECOMMENDATIONS: Lower endoscopy in 10 years, 2030 Plan - Discharge Summary Discharge Rx Participant: No New Discharge Prescriptions: Continue Albuterol Inhaler [Ventolin Hfa Inhaler] 2 puff INHALATION QID PRN PRN Reason: Shortness Of Breath metFORMIN HCL [Glucophage] 1,000 mg PO BID Omeprazole 40 mg PO DAILY Montelukast Sodium [Singulair] 10 mg PO DAILY Lisinopril [Prinivil] 10 mg PO DAILY Fexofenadine HCl [Sol Allergy] 180 mg PO HS ALPRAZolam [Xanax] 0.25 mg PO BID PRN PRN Reason: Anxiety Simethicone [Gas-X] 125 mg PO AC-TID PRN #20 capsule PRN Reason: Pain Lynn-3 Fatty Acids [Lynn-3] 1,000 mg PO HS Cholecalciferol (Vitamin D3) [Vitamin D3 (125 MCG = 5,000 IU)] 125 mcg PO DAILY Zinc 50 mg PO DAILY Loperamide HCl [Imodium A-D] 2 mg PO DAILY PRN PRN Reason: Diarrhea Liraglutide [Victoza 3-Armond] 1.2 mg SQ DAILY Fluticasone Nasal [place] [Flonase Nasal [place]] 2 spr EA NOSTRIL DAILY PRN PRN Reason: Allergy Symptoms Cyclobenzaprine [Flexeril] 5 mg PO TID PRN PRN Reason: Muscle Spasm Ibuprofen [Motrin] 600 mg PO Q8HR PRN #30 tab PRN Reason: Pain Acetaminophen Tab [Tylenol] 1,000 mg PO Q6HR PRN #30 tablet PRN Reason: Pain Ascorbic Acid [Vitamin C] 500 mg PO DAILY Discharge Medication List ALPRAZolam [Xanax] 0.25 mg PO BID PRN 08/25/20 [History] Albuterol Inhaler [Ventolin Hfa Inhaler] 2 puff INHALATION QID PRN 08/25/20 [History] Cyclobenzaprine [Flexeril] 5 mg PO TID PRN 08/25/20 [History] Fexofenadine HCl [Sol Allergy] 180 mg PO HS 08/25/20 [History] Fluticasone Nasal [place] [Flonase Nasal [place]] 2 spr EA NOSTRIL DAILY PRN 08/25/20 [History] Liraglutide [Victoza 3-Armond] 1.2 mg SQ DAILY 08/25/20 [History] Lisinopril [Prinivil] 10 mg PO DAILY 08/25/20 [History] Montelukast Sodium [Singulair] 10 mg PO DAILY 08/25/20 [History] Omeprazole 40 mg PO DAILY 08/25/20 [History] metFORMIN HCL [Glucophage] 1,000 mg PO BID 08/25/20 [History] Acetaminophen Tab [Tylenol] 1,000 mg PO Q6HR PRN #30 tablet 08/27/20 [Rx] Ibuprofen [Motrin] 600 mg PO Q8HR PRN #30 tab 08/27/20 [Rx] Simethicone [Gas-X] 125 mg PO AC-TID PRN #20 capsule 08/27/20 [Rx] Ascorbic Acid [Vitamin C] 500 mg PO DAILY 09/20/20 [History] Cholecalciferol (Vitamin D3) [Vitamin D3 (125 MCG = 5,000 IU)] 125 mcg PO DAILY 09/20/20 [History] Loperamide HCl [Imodium A-D] 2 mg PO DAILY PRN 09/20/20 [History] Lynn-3 Fatty Acids [Lynn-3] 1,000 mg PO HS 09/20/20 [History] Zinc 50 mg PO DAILY 09/20/20 [History] Follow up Appointment(s)/Referral(s): Stephanie Ramos MD [STAFF PHYSICIAN] - As Needed Patient Instructions/Handouts: *Surgery [facility] - (Anesthesia) Endoscopy Discharge Instructions, Gastritis (DC), Diverticulosis (DC), Diet for Stomach Ulcers and Gastritis (ED), Diverticulosis Diet (GEN) Activity/Diet/Wound Care/Special Instructions: Repeat colonoscopy in 10 years, 2030 Discharge Disposition: HOME SELF-CARE
== END 2020-09-22 11:15 | disposition home or self-care (01) ==
LOC: ORWHC2ENDO 08:06
PROVIDERS: ATTEND Surgery Plastic and Reconstructive Surgery
DX: Z12.11 Encounter for screening for malignant neoplasm of colon (principal); K29.50 Unspecified chronic gastritis without bleeding; K57.30 Diverticulosis of large intestine without perforation or abscess without bleeding; K64.8 Other hemorrhoids; K64.3 Fourth degree hemorrhoids; K21.00 Gastro-esophageal reflux disease with esophagitis, without bleeding; G47.33 Obstructive sleep apnea (adult) (pediatric); J44.9 Chronic obstructive pulmonary disease, unspecified; F41.9 Anxiety disorder, unspecified; E11.9 Type 2 diabetes mellitus without complications; I10 Essential (primary) hypertension; Z90.49 Acquired absence of other specified parts of digestive tract; Z86.16 Personal history of COVID-19; K44.9 Diaphragmatic hernia without obstruction or gangrene; Z79.1 Long term (current) use of non-steroidal anti-inflammatories (NSAID); Z79.84 Long term (current) use of oral hypoglycemic drugs; Z87.891 Personal history of nicotine dependence; Z88.5 Allergy status to narcotic agent; Z88.8 Allergy status to other drugs, medicaments and biological substances
CPT/HCPCS: 88305; 88342; 43239; J2250; J2001; J3010; J2704; G0121

== ENCOUNTER 2021-01-07 05:49 | Day surgery (SDC) | payer OTHER ==
[2021-01-04 12:58] VITALS: BMI 34.8
--- NOTE | 2021-01-07 05:23 | P.GSHP ---
History of Present Illness H&P Date: 01/07/21 CHIEF COMPLAINT: Inguinal hernia, bilateral and ventral hernia HISTORY OF PRESENT ILLNESS: The patient is a 50-year-old male who presents with a history of swelling and pain along the groins and umbilicus. He's noted increased swelling including pain of the area. Now he presents for repair of his inguinal hernia and ventral hernia. PAST MEDICAL HISTORY: Please see list. PAST SURGICAL HISTORY: Please see list. MEDICATIONS: Please see list. ALLERGIES: Please see list. SOCIAL HISTORY: No illicit drug use FAMILY HISTORY: No reports of Crohn disease or ulcerative colitis. REVIEW OF ORGAN SYSTEMS: CONSTITUTIONAL: No reports of fevers or chills. No reports of weight loss despite prior attempts. GI: Denies any blood in stools or constipation. PHYSICAL EXAM: VITAL SIGNS: Stable GENERAL: Well-developed pleasant male in no acute distress. HEENT: No scleral icterus. Extraocular movements grossly intact. Moist buccal mucosa. NECK: Supple without lymphadenopathy. CHEST: Unlabored respirations. Equal bilateral excursions. CARDIOVASCULAR: Regular rate and rhythm. Distal 2+ pulses. ABDOMEN: Soft, nondistended. No peritoneal signs. Palpable defect of the groin MUSCULOSKELETAL: No clubbing, cyanosis, or edema. ASSESSMENT: 1. Inguinal hernia, bilateral 2. Ventral hernia PLAN: 1. Recommend proceeding with a robotic inguinal repair with mesh with bilateral approach and ventral hernia. 2. Benefits and risks of surgical intervention was discussed including possibility of open technique. 3. DVT prophylaxis. 4. Antibiotic prophylaxis. Past Medical History Past Medical History: Asthma, COPD, Diabetes Mellitus, GERD/Reflux, Hypertension, Osteoarthritis (OA), Sleep Apnea/CPAP/BIPAP Additional Past Medical History / Comment(s): probable covid 12/2019, fatty liver, neuropathy lower extremities, uses CPAP, currently being tx. for strep throat, had neg. covid test last . 12-28-20 History of Any Multi-Drug Resistant Organisms: None Reported Past Surgical History: Cholecystectomy, Orthopedic Surgery Additional Past Surgical History / Comment(s): arthroscopic right knee x2, arthroscopy left shoulder, sandip. CTS, SHIRLEY Past Anesthesia/Blood Transfusion Reactions: Previous Problems w/ Anesthesia Additional Past Anesthesia/Blood Transfusion Reaction / Comment(s): was told stopped breathing during [facility]LEY, has never had any problems w/other surgeries Smoking Status: Former smoker Medications and Allergies Home Medications Medication Instructions Recorded Confirmed Type ALPRAZolam [Xanax] 0.25 mg PO BID PRN 08/25/20 01/04/21 History Albuterol Inhaler [Ventolin Hfa 2 puff INHALATION QID PRN 08/25/20 01/04/21 History Inhaler] Cyclobenzaprine [Flexeril] 5 mg PO TID PRN 08/25/20 01/04/21 History Fexofenadine HCl [Sol Allergy] 180 mg PO HS 08/25/20 01/04/21 History Fluticasone Nasal [place] [Flonase 2 spr EA NOSTRIL DAILY PRN 08/25/20 01/04/21 History Nasal [place]] Liraglutide [Victoza 3-Armond] 1.2 mg SQ DAILY 08/25/20 01/04/21 History Lisinopril [Prinivil] 10 mg PO DAILY 08/25/20 01/04/21 History Montelukast Sodium [Singulair] 10 mg PO HS 08/25/20 01/04/21 History Omeprazole 40 mg PO DAILY 08/25/20 01/04/21 History Acetaminophen Tab [Tylenol] 1,000 mg PO Q6HR PRN #30 tablet 08/27/20 01/04/21 Rx Ascorbic Acid [Vitamin C] 500 mg PO DAILY 09/20/20 01/04/21 History Cholecalciferol (Vitamin D3) 125 mcg PO DAILY 09/20/20 01/04/21 History [Vitamin D3 (125 MCG = 5,000 IU)] [place]-3 Fatty Acids [[place]-3] 1,000 mg PO HS 09/20/20 01/04/21 History Zinc 50 mg PO DAILY 09/20/20 01/04/21 History Amoxicillin 875 mg PO Q12HR 01/04/21 01/04/21 History Allergies Allergy/AdvReac Type Severity Reaction Status Date / Time codeine Allergy Rash/Hives Verified 01/04/21 12:20 diclofenac [From Cataflam] Allergy Unknown Verified 01/04/21 12:20 gemfibrozil [From Lopid] Allergy Rash/Hives Verified 01/04/21 12:20 metaxalone [From Skelaxin] Allergy Rash/Hives Verified 01/04/21 12:20
[~2021-01-07 05:49] MED LIST changes: +ACETAMINOPHEN TAB 500 MG TAB PO PRN; +GABAPENTIN 300 MG CAP PO PRN; +HEPARIN SODIUM,PORCINE/PF 5,000 UNIT/0.5 ML SYRINGE SQ PRN; -LACTATED RINGERS 1,000 ML IV SCH; -LIDOCAINE 1% (10MG/ML) FOR IV START INTRADERMA PRN; +TAMSULOSIN 0.4 MG CAP.ER.24H PO PRN; +ceFAZolin 3 GM in SODIUM CHLORIDE 0.9% 100 ML IVPB PRN
[2021-01-07] MEDS ORDERED: ONDANSETRON 4 MG/2 ML VIAL IVP ONE ×3 (06:13→09:57)
[2021-01-07] MEDS ORDERED: LACTATED RINGERS 1,000 ML IV SCH (06:13)
[2021-01-07] MEDS ORDERED: MIDAZOLAM 2 MG/2 ML VIAL IV PRN (06:13)
[2021-01-07] MEDS ORDERED: DEXAMETHASONE SOD PHOSPHATE 4 MG/ML 1 ML VIAL IV ONE (06:13)
[2021-01-07] MEDS ORDERED: SCOPOLAMINE 1.5MG/72HR PATCH TRANSDERM ONE (06:13)
[2021-01-07 06:43] LABS: Glucose,Whole Blood 133 mg/dL (75-99)
[2021-01-07 07:03] LABS: Basophils % (A) 1 %; Eosinophils # (A) 0.1 k/uL (0-0.7); Eosinophils % (A) 2 %; HGB 14.6 gm/dL (13.0-17.5); Lymphocytes # (A) 2.1 k/uL (1.0-4.8); Lymphocytes % (A) 34 %; MCH 33.3 pg (25.0-35.0); MCHC 36.6 g/dL (31.0-37.0); MCV 91.1 fL (80.0-100.0); Mean Platelet Volume 8.1; Monocytes # (A) 0.4 k/uL (0-1.0); Monocytes % (A) 6 %; Neutrophils # (A) 3.5 k/uL (1.3-7.7); Neutrophils % (A) 56 %; Platelet Count 194 k/uL (150-450); RBC 4.39 m/uL (4.30-5.90); RDW 12.6 % (11.5-15.5); WBC 6.3 k/uL (3.8-10.6)
[2021-01-07] MEDS ORDERED: MIDAZOLAM 2 MG/2 ML VIAL IVP ONE (07:13)
[2021-01-07] MEDS ORDERED: LIDOCAINE 1% INJ 10MG/ML (20 ML MDV) ONE (07:27)
[2021-01-07] MEDS ORDERED: NEOSTIGMINE 1 MG/ML 10 ML VIAL ONE (07:27)
[2021-01-07] MEDS ORDERED: ROCURONIUM 10 MG/ML (5 ML VIAL) IV ONE (07:27)
[2021-01-07] MEDS ORDERED: SODIUM CHLORIDE 0.9% (PF) 10 ML VIAL ONE (07:27)
[2021-01-07] MEDS ORDERED: .fentaNYL (PF) 50 MCG/ML AMP ONE (07:27)
[2021-01-07] MEDS ORDERED: MIDAZOLAM 2 MG/2 ML VIAL ONE (07:27)
[2021-01-07] MEDS ORDERED: HYDROmorphone (PF) 1 MG/ML ONE (07:27)
[2021-01-07] MEDS ORDERED: SUCCINYLCHOLINE CHLORIDE VIAL 200 MG/10 ML VIAL IV ONE (07:27)
[2021-01-07] MEDS ORDERED: ROPIVACAINE 5 MG/ML 30 ML VIAL ONE (07:27)
[2021-01-07] MEDS ORDERED: PROPOFOL 10 MG/ML 20 ML VIAL IV ONE (07:27)
[2021-01-07] MEDS ORDERED: ALBUTEROL INHALER 60 PUFF/8 GM INHALER (MHU) INHALATION ONE (07:27)
[2021-01-07] MEDS ORDERED: GLYCOPYRROLATE 0.2 MG/ML 2 ML VIAL ONE (07:27)
--- NOTE | 2021-01-07 07:50 | P.ANPRN ---
Procedure Note - Anesthesia - Nerve Block Performed Bilateral Erector Spinae Time Out Performed: Yes (07:12) Date of Procedure: 01/07/21 Procedure Start Time: :12 Procedure Stop Time: : Location of Patient: PreOp Indication: Acute Post-Operative Pain, Requested by Surgeon (Dr Cabrera) Sedation Type: Sedate with meaningful contact maintained Preparation: Sterile Prep Position: Prone Catheter: None Needle Types: Pajunk Needle Gauge: 21 Ultrasound used to visualize needle placement: Yes Ultrasound used to observe medication spread: Yes Injectate: 0.5% Ropivacaine (see comment for volume) (15cc + 10cc PF normal saline each side) Blood Aspirated: No Pain Paresthesia on Injection Noted: No Resistance on Injection: Normal Image Stored and Saved: Yes Events: Uneventful and Well Tolerated
[2021-01-07 08:06] LABS: ALT 86 U/L (4-49); AST 41 U/L (17-59); African American GFR (CKD) >90 (>60 ml/min/1.73 sqM); Albumin 4.5 g/dL (3.5-5.0); Alkaline Phosphatase 62 U/L (38-126); Anion Gap 10 mmol/L; Blood Urea Nitrogen 18 mg/dL (9-20); Calcium 9.6 mg/dL (8.4-10.2); Carbon Dioxide 25 mmol/L (22-30); Chloride 103 mmol/L (98-107); Glucose 129 mg/dL (74-99); Non-African American GFR(CKD) >90 (>60 ml/min/1.73 sqM); Potassium 4.4 mmol/L (3.5-5.1); Sodium 138 mmol/L (137-145); Total Bilirubin 0.8 mg/dL (0.2-1.3); Total Protein 7.3 g/dL (6.3-8.2)
[2021-01-07] MEDS ORDERED: BUPIVACAIN-EPI 0.25%-1:200,000 30 ML VIAL SQ ONE (08:15)
[2021-01-07] MEDS ORDERED: LACTATED RINGERS 1,000 ML IV ONE (09:02)
[2021-01-07 09:52] VITALS: TEMP 97
[2021-01-07] MEDS ORDERED: ONDANSETRON 4 MG/2 ML VIAL ONE (09:55)
[2021-01-07] MEDS: HYDROmorphone 0.5 MG/0.5 ML SYRINGE IVP PRN ×2 (09:57→10:16)
[2021-01-07 10:02] VITALS: RESP 16
[2021-01-07] MEDS ORDERED: KETOROLAC 30 MG/ML 1 ML VIAL IVP PRN (10:04)
--- NOTE | 2021-01-07 10:19 | P.OP ---
Date of Procedure: 01/07/21 Description of Procedure: SURGEON: EMBER RAMOS MD PREOPERATIVE DIAGNOSES: 1. Bilateral inguinal hernias, initial 2. Incarcerated umbilical hernia 3. Diabetes type 2 with neuropathy 4. Hypertensive heart disease 5. Obstructive sleep apnea 6. Generalized anxiety disorder 7. Chronic obstructive pulmonary disease with asthma 8. Fatty liver disease POSTOPERATIVE DIAGNOSES: 1. Bilateral inguinal hernias, initial 2. Incarcerated umbilical hernia 3. Diabetes type 2 with neuropathy 4. Hypertensive heart disease 5. Obstructive sleep apnea 6. Generalized anxiety disorder 7. Chronic obstructive pulmonary disease with asthma 8. Fatty liver disease OPERATION: 1. Robotic-assisted da Josef Xi laparoscopic repair of initial bilateral inguinal hernias with mesh, 11.[address] 2. Robotic-assisted da Josef Xi laparoscopic reduction repair of initial incarcerated umbilical hernia with mesh, 11.[address] ANESTHESIA: General with local anesthetic ESTIMATED BLOOD LOSS: 5 mL. SPECIMENS: 1. Incarcerated umbilical hernia COMPLICATIONS: None. FINDINGS: 1. Incarcerated umbilical hernia 2 x 3 cm with omentum 2. Right inguinal hernia, indirect, defect 1-cm 3. Left inguinal hernia, weak floor INDICATIONS: The patient is a 50-year-old male who presents with initial bilateral inguinal hernias including incarcerated umbilical hernia. Now he presents for definitive surgical intervention. Laparoscopic versus open and robotic approaches were discussed including bilateral approach. Benefits and risks including bleeding, infection, chronic groin pain, sterility were reviewed. Placement of mesh was also described. Informed consent was obtained. DESCRIPTION: In the preoperative area, an abdominal block was placed per anesthesia. The patient was brought to the operating room and initially laid in supine position. The abdomen had been prepped and draped in standard sterile fashion. Ioban draping was also placed. Prior to incision, a timeout protocol was confirmed with surgical team regarding patient's name including procedures to be performed. Initial positioning for the robotic assisted ports were selected 20 cm superior to the target anatomy. A 0 degree 5 mm laparoscopic trocar entry was performed at the left upper quadrant. The abdomen was insufflated to 15 mmHg which he tolerated well. Diagnostic laparoscopy demonstrated no injury to bowel, viscera or mesentery. Incarcerated umbilical hernia containing omentum was identified. Along the right groin was a small 1 cm defect. The left groin had a weak posterior floor. Moderate redundant fat within the pelvis was also identified. Next, along the epigastrium, 8 mm robot trocar was placed. An 8-mm robotic trocar was placed under direct visualization at the right upper quadrant. An 8 mm port was placed at the left upper quadrant. All trocars were positioned between 10-cm apart from each other. A 12 mm robotic trochar was placed along the right upper quadrant at the lateral abdominal wall. The [employer] robot was primed, draped, prepared for docking along u pper abdomen of the patient. The patient was positioned 14 steep Trendelenburg position. I then went to the [employer] console. The assistant curator was at bedside for exchange of the robot arms and equipment. Incarcerated omental contents were found along the umbilicus. The defect was reduced. Fascial defect umbilical hernia defect 2 x 3 cm was found. The incarcerated contents were reduced as the peritoneal fat was cleaned from the abdominal wall. Next, hemostasis was checked with cautery. The hernia defects were oversewn using #1 nonabsorbable V-lock suture with fascial imbricat ion x 2. Next, ventralight ST mesh 11.4 cm was placed with the rough side towards the abdominal wall as to cover the epigastric including umbilical defect. 2-0 VLOC 9 inch sutures were used to fixate the mesh. Attention was brought to the left groin. A weak posterior floor was identified. As an onlay, an 11.[address] mesh by [employer] was cut in half and entered into the abdominal cavity via the 8 mm trocar. The mesh was tacked to the pelvis using nonabsorbable 2-0 VLOC 9-inch length sutures reinforcing a weak posterior inguinal floor. Attention was brought to the right groin. A right inguinal defect of 1 cm was found and oversewn using nonabsorbable 2-0 VLOC. Using a 2-0 VLOC, the peritoneal defect of the right inguinal hernia site was closed using a purestring suture. The defect was found to be completely closed with complete reduction of the right indirect inguinal hernia was confirmed. As an onlay, an 11.[address] mesh by [employer] was cut in half and entered into the abdominal cavity via the 8 mm trocar. The mesh was tacked to the pelvis using nonabsorbable 2-0 VLOC 9-inch length sutures. A final endoscopic imaging was obtained. The robot was undocked from the patient's bedside. I then rescrubbed into the case. The 12 mm trocar site was oversewn using 0 Vicryl and Ghulam-Miller. Insufflation was released from the abdominal cavity and all instruments were removed from the abdominal cavity. The rest of incisions were reapproximated using 4-0 Monocryl in a running subcuticular fashion. Incisions were cleansed using dilute hydrogen peroxide. Liquid glue was applied to the skin. An umbilical dressing using 4 x 4 and Tegaderm was placed. Abdominal binder was placed. At the end of the procedure, the needle, sponge and instrument counts had been verified correct by the environmental science technician. The patient had tolerated the procedure well and was taken to the postanesthesia care unit in stable condition. Intraoperative images were reviewed with the patient's family who were pleased with the level of care. Plan - Discharge Summary Discharge Rx Participant: Yes New Discharge Prescriptions: New Ibuprofen [Motrin] 600 mg PO Q8HR PRN #30 tab PRN Reason: Pain Simethicone [Gas-X] 125 mg PO AC-TID PRN #20 capsule PRN Reason: Pain Acetaminophen Tab [Tylenol Tab] 1,000 mg PO Q6HR PRN #30 tablet PRN Reason: Pain Continue Albuterol Inhaler [Ventolin Hfa Inhaler] 2 puff INHALATION QID PRN PRN Reason: Shortness Of Breath Omeprazole 40 mg PO DAILY Montelukast Sodium [Singulair] 10 mg PO HS Lisinopril [Prinivil] 10 mg PO DAILY Fexofenadine HCl [Sol Allergy] 180 mg PO HS ALPRAZolam [Xanax] 0.25 mg PO BID PRN PRN Reason: Anxiety Vancouver-3 Fatty Acids [[place]-3] 1,000 mg PO HS Cholecalciferol (Vitamin D3) [Vitamin D3 (125 MCG = 5,000 IU)] 125 mcg PO DAILY Zinc 50 mg PO DAILY Liraglutide [Victoza 3-Armond] 1.2 mg SQ DAILY Fluticasone Nasal [place] [Flonase Nasal [place]] 2 spr EA NOSTRIL DAILY PRN PRN Reason: Allergy Symptoms Cyclobenzaprine [Flexeril] 5 mg PO TID PRN PRN Reason: Muscle Spasm Acetaminophen Tab [Tylenol] 1,000 mg PO Q6HR PRN #30 tablet PRN Reason: Pain Ascorbic Acid [Vitamin C] 500 mg PO DAILY Amoxicillin 875 mg PO Q12HR Discharge Medication List ALPRAZolam [Xanax] 0.25 mg PO BID PRN 08/25/20 [History] Albuterol Inhaler [Ventolin Hfa Inhaler] 2 puff INHALATION QID PRN 08/25/20 [History] Cyclobenzaprine [Flexeril] 5 mg PO TID PRN 08/25/20 [History] Fexofenadine HCl [Sol Allergy] 180 mg PO HS 08/25/20 [History] Fluticasone Nasal [place] [Flonase Nasal [place]] 2 spr EA NOSTRIL DAILY PRN 08/25/20 [History] Liraglutide [Victoza 3-Armond] 1.2 mg SQ DAILY 08/25/20 [History] Lisinopril [Prinivil] 10 mg PO DAILY 08/25/20 [History] Montelukast Sodium [Singulair] 10 mg PO HS 08/25/20 [History] Omeprazole 40 mg PO DAILY 08/25/20 [History] Acetaminophen Tab [Tylenol] 1,000 mg PO Q6HR PRN #30 tablet 08/27/20 [Rx] Ascorbic Acid [Vitamin C] 500 mg PO DAILY 09/20/20 [History] Cholecalciferol (Vitamin D3) [Vitamin D3 (125 MCG = 5,000 IU)] 125 mcg PO DAILY 09/20/20 [History] Vancouver-3 Fatty Acids [V[place]-3] 1,000 mg PO HS 09/20/20 [History] Zinc 50 mg PO DAILY 09/20/20 [History] Amoxicillin 875 mg PO Q12HR 01/04/21 [History] Acetaminophen Tab [Tylenol Tab] 1,000 mg PO Q6HR PRN #30 tablet 01/07/21 [Rx] Ibuprofen [Motrin] 600 mg PO Q8HR PRN #30 tab 01/07/21 [Rx] Simethicone [Gas-X] 125 mg PO AC-TID PRN #20 capsule 01/07/21 [Rx] Follow up Appointment(s)/Referral(s): Ember Ramos MD [STAFF PHYSICIAN] - 01/13/21 Patient Instructions/Handouts: Ventral Hernia Repair (GEN), Laparoscopic Herniorrhaphy (IP), Umbilical Hernia Repair (DC), Abdominal Binder (DC) Activity/Diet/Wound Care/Special Instructions: DO NOT REMOVE UMBILICAL DRESSING. Using antibacterial soap. No lifting over 4 pounds 4 weeks, Feb 07June shower. No bathtub soaks for 2 weeks, Jan 21 Wear abdominal binder daily for comfort except for showering. Use ice along incisions for today to prevent swelling. Take tylenol, aleve/ibuprofen, simethicone scheduled for 3 days for best pain relief Discharge Disposition: HOME SELF-CARE
[2021-01-07] MEDS ORDERED: HYDROcodone/APAP 5-325MG 1 EACH TAB ONE (11:02)
[2021-01-07] MEDS ORDERED: HYDROcodone/APAP 5-325MG 1 EACH TAB PO ONE (11:06)
[2021-01-07] MEDS ORDERED: SIMETHICONE 40 MG/0.6 ML DROPS 2,000 MG/30 ML BOTTLE PO ONE ×2 (11:06)
[2021-01-07 12:01] VITALS: BP 104/63; PULSE 63
== END 2021-01-07 12:38 | disposition home or self-care (01) ==
LOC: OR 05:49
PROVIDERS: ATTEND Surgery Plastic and Reconstructive Surgery
DX: K40.20 Bilateral inguinal hernia, without obstruction or gangrene, not specified as recurrent (principal); K42.0 Umbilical hernia with obstruction, without gangrene; E11.40 Type 2 diabetes mellitus with diabetic neuropathy, unspecified; I11.9 Hypertensive heart disease without heart failure; G47.33 Obstructive sleep apnea (adult) (pediatric); F41.1 Generalized anxiety disorder; J44.9 Chronic obstructive pulmonary disease, unspecified; K76.0 Fatty (change of) liver, not elsewhere classified
CPT/HCPCS: 49650; 64999; 80053; 85025; 88302; C1781; J2250; J0330; J2710; J0690; J2405; J2001; J3010; J1885; J1170 ×2; J2795; J2704

== ENCOUNTER 2022-02-02 09:42 | Day surgery (SDC) | payer OTHER ==
[~2022-02-02 09:42] MED LIST changes: -ACETAMINOPHEN TAB 500 MG TAB PO PRN; -GABAPENTIN 300 MG CAP PO PRN; +Pre Op ABX Message 1 EACH MISC MISCELLANE ONE; -TAMSULOSIN 0.4 MG CAP.ER.24H PO PRN; -ceFAZolin 3 GM in SODIUM CHLORIDE 0.9% 100 ML IVPB PRN
[2022-02-02] MEDS ORDERED: ONDANSETRON 4 MG/2 ML VIAL IVP ONE (09:49)
[2022-02-02] MEDS ORDERED: LACTATED RINGERS 1,000 ML IV SCH (09:49)
[2022-02-02] MEDS ORDERED: HYDROmorphone 0.5 MG/0.5 ML SYRINGE IVP PRN (09:49)
[2022-02-02] MEDS ORDERED: LIDOCAINE 1% (10MG/ML) FOR IV START INTRADERMA PRN (09:49)
[2022-02-02 10:14] LABS: Glucose,Whole Blood 136 mg/dL (70-110)
[2022-02-02] MEDS ORDERED: SCOPOLAMINE 1 MG/72 HR PATCH TRANSDERM ONE (10:20)
[2022-02-02 10:25] LABS: Basophils % (A) 1 %; Eosinophils # (A) 0.1 k/uL (0-0.7); Eosinophils % (A) 2 %; HCT 43.8 % (39.0-53.0); HGB 15.7 gm/dL (13.0-17.5); Lymphocytes # (A) 2.1 k/uL (1.0-4.8); Lymphocytes % (A) 32 %; MCH 32.8 pg (25.0-35.0); MCHC 35.8 g/dL (31.0-37.0); MCV 91.8 fL (80.0-100.0); Mean Platelet Volume 8.8; Monocytes # (A) 0.3 k/uL (0-1.0); Monocytes % (A) 4 %; Neutrophils # (A) 3.8 k/uL (1.3-7.7); Neutrophils % (A) 59 %; Platelet Count 190 k/uL (150-450); RBC 4.77 m/uL (4.30-5.90); WBC 6.4 k/uL (3.8-10.6)
[2022-02-02 10:45] LABS: ALT 33 U/L (4-49); AST 27 U/L (17-59); African American GFR (CKD) >90 (>60 ml/min/1.73 sqM); Albumin 4.8 g/dL (3.5-5.0); Alkaline Phosphatase 80 U/L (38-126); Anion Gap 6 mmol/L; Blood Urea Nitrogen 27 mg/dL (9-20); Calcium 9.5 mg/dL (8.4-10.2); Carbon Dioxide 25 mmol/L (22-30); Chloride 108 mmol/L (98-107); Glucose 133 mg/dL (74-99); Non-African American GFR(CKD) >90 (>60 ml/min/1.73 sqM); Potassium 4.4 mmol/L (3.5-5.1); Sodium 139 mmol/L (137-145); Total Protein 7.4 g/dL (6.3-8.2)
--- NOTE | 2022-02-02 10:46 | P.GSHP ---
History of Present Illness H&P Date: 02/02/22 CHIEF COMPLAINT: Chest wall mass HISTORY OF PRESENT ILLNESS: The patient is a 51 year-old male with history of mass along the left chest wall over 4 cm size and painful. Mass has been present for over 2 years. He presents today for surgical excision. PAST MEDICAL HISTORY: Please see list. PAST SURGICAL HISTORY: Please see list. MEDICATIONS: Please see list. ALLERGIES: Please see list. SOCIAL HISTORY: No illicit drug use FAMILY HISTORY: No reports of Crohn disease or ulcerative colitis. REVIEW OF ORGAN SYSTEMS: CONSTITUTIONAL: No reports of fevers or chills. GI: Denies any blood in stools or constipation. PHYSICAL EXAM: VITAL SIGNS: Stable SKIN: Well perfused. Good skin turgor. 4 cm mass overlying the left chest wall/flank Musculoskeletal: No clubbing cyanosis or edema GENERAL: Well developed and in no acute distress. Pleasant. HEENT: No sclera icterus. Extraocular movements grossly intact. Moist buccal mucosa. Head is atraumatic, normocephalic. Hears conversational speech. No nasal drainage. NECK: Supple without lymphadenopathy. No JV distention. CHEST: Non-labored respirations and equal bilateral excursions. CARDIOVASCULAR: Regular rate and rhythm. Palpable 2+ radial pulses. ABDOMEN: Soft. Non-tender. Nondistended. NEUROLOGIC: No focal or lateralizing signs. PSYCH: Appropriate affect. Alert and oriented to person, place and time. ASSESSMENT: 1. Mass along left lateral chest wall, 4 cm PLAN: 1. Will proceed of excision of subcutaneous tumor along the upper chest wall 2. DVT prophylaxis. 3. Antibiotic prophylaxis. 4. Time of recovery, at least one week. Past Medical History Past Medical History: Asthma, COPD, Diabetes Mellitus, GERD/Reflux, Hypertension, Osteoarthritis (OA), Sleep Apnea/CPAP/BIPAP Additional Past Medical History / Comment(s): fatty liver, neuropathy feet., uses CPAP, states intentional wt loss of 30 # since september because he didnt want to take diabetic meds. ,psoriasis., hemmoroids., lipoma left chest. History of Any Multi-Drug Resistant Organisms: None Reported Past Surgical History: Cholecystectomy, Orthopedic Surgery Additional Past Surgical History / Comment(s): arthroscopic right knee x2, arthroscopy left shoulder., sandip CTS, SHIRLEY Past Anesthesia/Blood Transfusion Reactions: Previous Problems w/ Anesthesia, Motion Sickness Additional Past Anesthesia/Blood Transfusion Reaction / Comment(s): was told he stopped breathing during SHIRLEY, has never had any problems w/other surgeries Past Psychological History: Anxiety Smoking Status: Former smoker Past Alcohol Use History: Daily Additional Past Alcohol Use History / Comment(s): quit smoking 2009, smoked 1 1/2ppd >20 yrs. currently has 1 drink daily Past Drug Use History: None Reported - Past Family History Father Family Medical History: Myocardial Infarction (AL) Medications and Allergies Home Medications Medication Instructions Recorded Confirmed Type ALPRAZolam [Xanax] 0.25 mg PO BID PRN 08/25/20 01/30/22 History Albuterol Inhaler [Ventolin Hfa 2 puff INHALATION QID PRN 08/25/20 01/30/22 History Inhaler] Cyclobenzaprine [Flexeril] 5 mg PO DIRECTED PRN 08/25/20 01/30/22 History Fexofenadine HCl [Sol Allergy] 180 mg PO DAILY 08/25/20 01/30/22 History Montelukast Sodium [Singulair] 10 mg PO QAM 08/25/20 01/30/22 History Omeprazole 40 mg PO DAILY 08/25/20 01/30/22 History lisinopriL [Prinivil] 10 mg PO DAILY 08/25/20 01/30/22 History Cholecalciferol (Vitamin D3) 125 mcg PO DAILY 09/20/20 01/30/22 History [Vitamin D3 (125 MCG = 5,000 IU)] Zinc 50 mg PO DAILY 09/20/20 01/30/22 History Acetaminophen Tab [Tylenol] 650 mg PO Q6H PRN 01/30/22 01/30/22 History Krill Oil 500 mg PO DAILY 01/30/22 01/30/22 History Loperamide HCl [Imodium A-D] 2 mg PO DAILY 01/30/22 01/30/22 History Multivit-Min/Folic/Vit K/Lycop 1 each PO DAILY 01/30/22 01/30/22 History [Men's Multivitamin Tablet] Allergies Allergy/AdvReac Type Severity Reaction Status Date / Time codeine Allergy Rash/Hives Verified 01/30/22 11:59 diclofenac [From Cataflam] Allergy Unknown Verified 01/30/22 11:59 gemfibrozil [From Lopid] Allergy Rash/Hives Verified 01/30/22 11:59 metaxalone [From Skelaxin] Allergy Rash/Hives Verified 01/30/22 11:59 Surgical - Exam Vital Signs Temp Pulse Resp BP Pulse Ox 97.6 F 60 20 110/74 97 02/02/22 10:04 02/02/22 10:04 02/02/22 10:04 02/02/22 10:04 02/02/22 10:04 Results - Labs 02/02/22 10:10 Abnormal Lab Results - Last 24 Hours (Table) 02/02/22 Range/Units 10:08 POC Glucose (mg/dL) 136 H (70-110) mg/dL
[2022-02-02] MEDS ORDERED: MIDAZOLAM 2 MG/2 ML VIAL ONE (10:53)
[2022-02-02] MEDS ORDERED: LIDOCAINE 2% INJ 20 MG/ML (2 ML VIAL) ONE (10:53)
[2022-02-02] MEDS ORDERED: fentaNYL (PF) 50 MCG/ML 2 ML AMP ONE (10:53)
[2022-02-02] MEDS ORDERED: PROPOFOL 10 MG/ML 20 ML VIAL IV ONE (10:53)
[2022-02-02] MEDS ORDERED: KETAMINE 10 MG/ML 20 ML VIAL ONE (10:53)
[2022-02-02] MEDS ORDERED: BUPIVACAIN-EPI 0.25%-1:200,000 30 ML VIAL SQ ONE (11:12)
[2022-02-02 11:47] VITALS: TEMP 97
[2022-02-02 11:59] VITALS: BP 105/66; PULSE 71; RESP 15
--- NOTE | 2022-02-02 12:06 | P.OP ---
Date of Procedure: 02/02/22 Description of Procedure: SURGEON: STEPHANIE RAMOS MD GUZZLER BUILDER: None. PREOPERATIVE DIAGNOSES: 1. Left chest wall mass 2. Diabetes type 2, insulin-dependent with complication 3. Obesity due to excess calories, BMI 30.2 4. Hypertensive heart disease 5. Gastroesophageal reflux disease 6. Obstructive sleep apnea POSTOPERATIVE DIAGNOSES: 1. Left chest wall mass 2. Diabetes type 2, insulin-dependent with complication 3. Obesity due to excess calories, BMI 30.2 4. Hypertensive heart disease 5. Gastroesophageal reflux disease 6. Obstructive sleep apnea PROCEDURES PERFORMED: 1. Excision of the subcutaneous left chest wall mass, 4 cm 2. Intermediate closure of 8 cm along the chest wall. ANESTHESIA: GETA and local ESTIMATED BLOOD LOSS: 5 mL. SPECIMENS REMOVED: Chest wall mass COMPLICATIONS: None. FINDINGS: 1. Lipomatous mass left chest wall over 4 cm excised INDICATIONS: The patient is a 51-year-old male with painful and palpable tumor along the left chest wall. Now he presents for surgical intervention. Benefits and risks of surgical intervention were described including bleeding, infection. Informed consent was obtained. DESCRIPTION OR PROCEDURE: Patient was brought into the operating room, laid in supine position. After general induction, the chest was prepped and draped in a standard sterile fashion with ChloraPrep. Timeout protocol was confirmed with the surgical team regarding the patient's name, procedure to be performed including preoperative medications. DVT prophylaxis was confirmed. A field block was placed of the left chest wall inferior to the left inframammary crease. Indelible marker was placed around the mid chest lesion. A transverse incision using #15 blade was made along the marking into the dermis and subcutaneous tissue. Electro-Bovie cautery was used to excise the lesion down to the fascia in a circumferential fashion. A 4 cm tumor was excised. 0 Vicryl for the deep subcutaneous tissue followed by 3-0 Monocryl in a running subcuticular fashion was placed along the dermis. The skin was cleansed and Exofin tape was applied followed by Optifoam. Local anesthetic was placed. At the end of the procedure, needle, sponge, and instrument count was verified correct by assembler surgical garment. The patient was awoken and taken to the second stage postanesthesia care unit. The patient tolerated the procedure well. Plan - Discharge Summary Discharge Rx Participant: Yes New Discharge Prescriptions: Continue Albuterol Inhaler [Ventolin Hfa Inhaler] 2 puff INHALATION QID PRN PRN Reason: Shortness Of Breath Omeprazole 40 mg PO DAILY Montelukast Sodium [Singulair] 10 mg PO QAM lisinopriL [Prinivil] 10 mg PO DAILY Fexofenadine HCl [Sol Allergy] 180 mg PO DAILY ALPRAZolam [Xanax] 0.25 mg PO BID PRN PRN Reason: Anxiety Cholecalciferol (Vitamin D3) [Vitamin D3 (125 MCG = 5,000 IU)] 125 mcg PO DAILY Zinc 50 mg PO DAILY Acetaminophen Tab [Tylenol] 650 mg PO Q6H PRN PRN Reason: Pain Multivit-Min/Folic/Vit K/Lycop [Men's Multivitamin Tablet] 1 each PO DAILY Loperamide HCl [Imodium A-D] 2 mg PO DAILY Cyclobenzaprine [Flexeril] 5 mg PO DIRECTED PRN PRN Reason: Muscle Spasm Krill Oil 500 mg PO DAILY Discharge Medication List ALPRAZolam [Xanax] 0.25 mg PO BID PRN 08/25/20 [History] Albuterol Inhaler [Ventolin Hfa Inhaler] 2 puff INHALATION QID PRN 08/25/20 [History] Cyclobenzaprine [Flexeril] 5 mg PO DIRECTED PRN 08/25/20 [History] Fexofenadine HCl [Sol Allergy] 180 mg PO DAILY 08/25/20 [History] Montelukast Sodium [Singulair] 10 mg PO QAM 08/25/20 [History] Omeprazole 40 mg PO DAILY 08/25/20 [History] lisinopriL [Prinivil] 10 mg PO DAILY 08/25/20 [History] Cholecalciferol (Vitamin D3) [Vitamin D3 (125 MCG = 5,000 IU)] 125 mcg PO DAILY 09/20/20 [History] Zinc 50 mg PO DAILY 09/20/20 [History] Acetaminophen Tab [Tylenol] 650 mg PO Q6H PRN 01/30/22 [History] Krill Oil 500 mg PO DAILY 01/30/22 [History] Loperamide HCl [Imodium A-D] 2 mg PO DAILY 01/30/22 [History] Multivit-Min/Folic/Vit K/Lycop [Men's Multivitamin Tablet] 1 each PO DAILY 01/30/22 [History] Follow up Appointment(s)/Referral(s): Stephanie Ramos MD [STAFF PHYSICIAN] - 02/07/22 (Telehealth) Patient Instructions/Handouts: *[facility] - Laser Vaporization of Cervical/Vaginal Lesions Discharge Instr, *[facility] - Scopalamine Patch Instructions, General Mass Excision (GEN) Activity/Diet/Wound Care/Special Instructions: DO NOT REMOVE DRESSING. May shower. No bath tub soaks for two weeks until Feb 16 Diet as tolerated. Use Tylenol and ibuprofen or Aleve scheduled for the next 24-48 hours for best pain relief. Use ice along incisions for today to prevent swelling. Discharge Disposition: HOME SELF-CARE
== END 2022-02-02 12:53 | disposition home or self-care (01) ==
LOC: OR 09:42
PROVIDERS: ATTEND Surgery Plastic and Reconstructive Surgery
DX: D17.1 Benign lipomatous neoplasm of skin and subcutaneous tissue of trunk (principal); E11.9 Type 2 diabetes mellitus without complications; E66.9 Obesity, unspecified; I11.9 Hypertensive heart disease without heart failure; K21.9 Gastro-esophageal reflux disease without esophagitis; G47.33 Obstructive sleep apnea (adult) (pediatric); J44.9 Chronic obstructive pulmonary disease, unspecified; F41.9 Anxiety disorder, unspecified; F10.90 Alcohol use, unspecified, uncomplicated; Z90.49 Acquired absence of other specified parts of digestive tract; Z99.89 Dependence on other enabling machines and devices; Z98.890 Other specified postprocedural states; Z87.891 Personal history of nicotine dependence; Z68.30 Body mass index [BMI] 30.0-30.9, adult; Z79.51 Long term (current) use of inhaled steroids; Z79.4 Long term (current) use of insulin; Z79.899 Other long term (current) drug therapy; Z79.1 Long term (current) use of non-steroidal anti-inflammatories (NSAID); Z88.5 Allergy status to narcotic agent; Z88.8 Allergy status to other drugs, medicaments and biological substances
CPT/HCPCS: 21552; 88304; 80053; 85025; 12034; J2250; J0690; J2405; J3010; J2704; J1644; J2001